=== PATIENT | female | born 1940 | race Caucasian/White ===

== ENCOUNTER → 2016-05-29 | Outpatient (CLI) | payer OTHER ==
--- NOTE | 2016-05-29 14:14 | DX ---
Lumbar Spine, 3 views History: Low back pain, M [age] Comparison: March 09, 2012 Findings: There are 5 lumbarized vertebral bodies . There is a slight scoliosis concave to the left c entered at L1-L2. Alignment on the lateral view is anatomic. There are stable old moderate L1 and mil d superior endplate L3 compression deformities. There is a new .mild-moderate inferior endplate compr ession of L4. There is stable anterior bridging osteophyte formation at T11-T12. There is stable dense atherosclerotic calcification of a normal sized abdominal aorta and proximal il iac arteries. There are chronic right abdominal surgical clips. Impression: 1. New L4 inferior endplate compression since 2011, of uncertain acuity. 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 This patient might also benefit from a DEXA scan. 2. Atherosclerosis.
== END ==
LOC: CIMAGING 10:13
PROVIDERS: ATTEND Internal Medicine
DX: M41.86 Other forms of scoliosis, lumbar region (principal); I70.0 Atherosclerosis of aorta
CPT/HCPCS: 72100-PO

== ENCOUNTER 2016-10-25 22:03 | Inpatient (IN) | payer OTHER ==
[2016-10-25] MEDS ORDERED: ACETAMINOPHEN 500 MG TAB PO ONE (22:38)
[2016-10-25] MEDS ORDERED: KETOROLAC 15 MG/1 ML SDV IVP ONE (22:38)
[2016-10-25] MEDS ORDERED: NS 1,000 ML IV ONE (22:38)
[2016-10-25] MEDS ORDERED: ONDANSETRON 4 MG/2 ML VIAL IVP ONE (22:38)
[2016-10-25] MEDS ORDERED: LIDOCAINE 1% 90 MG in NS 100 ML IV ONE (22:38)
--- NOTE | 2016-10-25 22:41 | EDPHY ---
H & P Stated Complaint: sent by Dr. Vamshi Tenorio kidney stone; hx of stones HPI/ROS: HPI The patient presents with left-sided flank pain which began suddenly at 4:00 p.m. today, it is achy in severe and getting progressively worse. She took a dose of tramadol without any improvement in the pain. She does notice that there is some blood in her urine and she is feeling nauseated. She also reports increased frequency of stooling since the pain occurred without any loose or watery stools. 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 She did have to undergo lithotripsy in approximately 2007 at [facility]. REVIEW OF SYSTEMS Constitutional: No fever, no chills. Eyes: No discharge. ENT: No sore throat. Cardiovascular: No chest pain, no palpitations. Respiratory: No cough, no shortness of breath. Gastrointestinal: No abdominal pain, no vomiting. Genitourinary: No hematuria. Musculoskeletal: Left flank pain Skin: No rashes. Neurological: No headache. PMHx: History of kidney stones, type 2 diabetes Soc Hx: Lives at home PHYSICAL General Appearance: Alert, no distress Eyes: Pupils equal and round no pallor or injection ENT, Mouth: Mucous membranes dry Respiratory: There are no retractions, lungs are clear to auscultation Cardiovascular: Regular rate and rhythm Gastrointestinal: Abdomen is soft with mild tenderness in the left lower quadrant, left-sided CVA tenderness is present Neurological: A&O, moves all extremities Skin: Warm and dry, no rashes Musculoskeletal: Neck is supple non tender Extremities: symmetrical, full range of motion Psychiatric: Patient is oriented X 3, there is no agitation Source: Patient Exam Limitations: No limitations - Personal History Current Tetanus/Diphtheria Vaccine: Yes - Medical/Surgical History Hx Asthma: No Hx Chronic Respiratory Disease: No Hx Diabetes: Yes Hx Cardiac Disease: No Hx Renal Disease: No Hx Cirrhosis: No Hx Alcoholism: No Hx HIV/AIDS: No Hx Splenectomy or Spleen Trauma: No Other PMH: PSHx: lithotripsy, appy, caitlin, hernia, vein ligation. PMHx: kidney stones, diabetes II, cystocele - Social History Smoking Status: Former smoker Constitutional: Initial Vital Signs Temperature (C) 36.6 C 10/25/16 22:08 Heart Rate 98 10/25/16 22:08 Respiratory Rate 16 10/25/16 22:08 Blood Pressure 124/70 H 10/25/16 22:08 O2 Sat (%) 96 10/25/16 22:08 O2 Delivery Mode Room Air Allergies/Adverse Reactions: Sulfa (Sulfonamide Antibiotics) Allergy (Verified 10/25/16 22:06) Home Medications: Medication Instructions Recorded Amlodipine Besylate 10/25/16 Aspirin 81mg (*) 10/25/16 Benazepril HCl 10/25/16 Metformin 1000 mg 10/25/16 Ranitidine HCl 10/25/16 SIMVASTATIN 10/25/16 traMADol 10/25/16 Medical Decision Making - Diagnostics Imaging Results: Imaging Impressions Abdomen/Pelvis CT 10/25/16 22:38 Impression: 1. A 5 mm calculus in the posterior left side of the bladder either representing recently passed left ureterolithiasis or a calculus lodged in the left ureterovesical junction with mild to moderate left hydronephrosis. 2. No right nephrolithiasis or hydronephrosis. 3. Multiple old compression fractures, worse at L1, likely osteoporotic. Consider follow-up DEXA bone scan when the patient's medical condition permits. Attention: This CT examination is specifically designed to evaluate patients who are clinically suspected of having acute obstructive uropathy. This examination does not use radiographic contrast, and as such, provides only a limited evaluation of the abdomen, pelvis and retroperitoneum. If there is further clinical suspicion for pathological conditions other than obstructive uropathy, a complete CT evaluation of the abdomen and pelvis utilizing intravenous, oral, and rectal contrast should be considered Findings and recommendations discussed with Emergency Department physician, Mariela Chowdhury MD at 23:03 hour, 10/25/2016. Final report concurs with initial preliminary interpretation.. Differential Diagnosis: This is a 76-year-old female with history of left-sided kidney stones who presents from home with several hours of severe left-sided flank pain associated with hematuria and nausea. Differential diagnosis includes renal colic, pyelonephritis, less likely AAA. In the emergency room, the patient was given IV fluid, Toradol, lidocaine, Zofran with improvement in her symptoms. Labs were performed and did reveal leukocytosis of 18,000, urine did demonstrate hematuria with signs of infection , nitrites were present. CT scan showed 5 mm stone in UVJ on the left with mild -to-moderate hydronephrosis. Given her history of diabetes with signs of concomitant pyelonephritis with her kidney stone, I feel she should be admitted to the hospital for observation. She is very well-appearing currently and I doubt that she has severe obstruction or infection. There are no signs of sepsis. I have discussed the case with Dr. Rosalinda Kumar of the hospitalist service and we plan to admit her. I have ordered her a bed in the hospital and she is comfortable with plan for admission. - Data Points Laboratory Results: Laboratory Results 10/25/16 22:40 10/25/16 22:40 10/25/16 10/25/16 10/25/16 22:40 22:40 22:30 WBC 18.42 10^3/uL H 10^3/uL (3.80-9.50) RBC 4.56 10^6/uL 10^6/uL (4.18-5.33) Hgb 13.9 g/dL g/dL (12.6-16.3) Hct 42.8 % % (38.0-47.0) MCV 93.9 fL fL (81.5-99.8) MCH 30.5 pg pg (27.9-34.1) MCHC 32.5 g/dL g/dL (32.4-36.7) RDW 13.2 % % (11.5-15.2) Plt Count 325 10^3/uL 10^3/uL (150-400) MPV 11.2 fL fL (8.7-11.7) Neut % (Auto) 87.4 % H % (39.3-74.2) Lymph % (Auto) 5.5 % L % (15.0-45.0) [place] % (Auto) 5.8 % % (4.5-13.0) Eos % (Auto) 0.3 % L % (0.6-7.6) Baso % (Auto) 0.6 % % (0.3-1.7) Nucleat RBC Rel Count 0.0 % % (0.0-0.2) Absolute Neuts (auto) 16.10 10^3/uL H 10^3/uL (1.70-6.50) Absolute Lymphs (auto) 1.01 10^3/uL 10^3/uL (1.00-3.00) Absolute Monos (auto) 1.07 10^3/uL H 10^3/uL (0.30-0.80) Absolute Eos (auto) 0.05 10^3/uL 10^3/uL (0.03-0.40) Absolute Basos (auto) 0.11 10^3/uL H 10^3/uL (0.02-0.10) Absolute Nucleated RBC 0.00 10^3/uL 10^3/uL (0-0.01) Immature Gran % 0.4 % % (0.0-1.1) Immature Gran # 0.08 10^3/uL 10^3/uL (0.00-0.10) Sodium 136 mEq/L mEq/L (134-144) Potassium 4.5 mEq/L mEq/L (3.5-5.2) Chloride 102 mEq/L mEq/L (97-110) Carbon Dioxide 20 mEq/l L mEq/l (22-31) Anion Gap 14 mEq/L mEq/L (8-16) BUN 17 mg/dL mg/dL (7-23) Creatinine 0.6 mg/dL mg/dL (0.6-1.0) Estimated GFR > 60 Glucose 133 mg/dL H mg/dL (70-100) Calcium 9.2 mg/dL mg/dL (8.5-10.4) Urine Color YELLOW Urine Appearance HAZY Urine pH 6.0 (5.0-7.5) Ur Specific [place] 1.015 (1.002-1.030) Urine Protein NEGATIVE (NEGATIVE) Urine Ketones 1+ H (NEGATIVE) Urine Blood 2+ H (NEGATIVE) Urine Nitrate POSITIVE H (NEGATIVE) Urine Bilirubin NEGATIVE (NEGATIVE) Urine Urobilinogen NEGATIVE EU EU (0.2-1.0) Ur Leukocyte Esterase 1+ H (NEGATIVE) Urine RBC 50-182 /hpf H /hpf (0-3) Urine WBC 15-25 /hpf H /hpf (0-3) Ur Epithelial Cells TRACE /lpf /lpf (NONE-1+) Urine Mucus TRACE /lpf /lpf (NONE-1+) Urine Glucose NEGATIVE (NEGATIVE) Medications Given: Discontinued Medications Acetaminophen (Tylenol) 1,000 mg PO EDNOW ONE Stop: 10/25/16 22:39 Last Admin: 10/25/16 23:01 Dose: 1,000 mg Sodium Chloride (Ns) 1,000 mls @ 0 mls/hr IV ONCE ONE; Wide Open PRN Reason: Protocol Stop: 10/25/16 22:39 Last Admin: 10/25/16 23:02 Dose: 1,000 mls Lidocaine HCl 90 mg/ Sodium (Chloride) 109 mls @ 600 mls/hr IV EDNOW ONE Stop: 10/25/16 22:48 Last Admin: 10/25/16 23:02 Dose: 109 mls Ceftriaxone Sodium/Dextrose (Rocephin 1 Gm (Premix)) 50 mls @ 100 mls/hr IV EDNOW ONE PRN Reason: Protocol Stop: 10/26/16 00:21 Last Admin: 10/25/16 23:59 Dose: 50 mls Sodium Chloride (Ns) 500 mls @ 0 mls/hr IV ONCE ONE PRN Reason: Wide Open Stop: 10/26/16 00:41 Last Admin: 10/26/16 00:35 Dose: 500 mls Ketorolac Tromethamine (Toradol) 15 mg IVP EDNOW ONE Stop: 10/25/16 22:39 Last Admin: 10/25/16 23:01 Dose: 15 mg Ondansetron HCl (Zofran) 4 mg IVP EDNOW ONE Stop: 10/25/16 22:39 Last Admin: 10/25/16 23:02 Dose: 4 mg Tamsulosin HCl (Flomax) 0.4 mg PO DAILY BENITA Stop: 04/24/17 00:01 Last Admin: 10/26/16 00:18 Dose: 0.4 mg Departure - Departure Disposition: [facility] Clinical Impression: Ureterolithiasis, Pyelonephritis Leukocytosis Qualifiers: Leukocytosis type: unspecified Qualified Code(s): D72.829 - Elevated white blood cell count, unspecified Diabetes mellitus Qualifiers: Diabetes mellitus type: type 2 Diabetes mellitus complication status: without complication Diabetes mellitus terminal carman insulin use: unspecified terminal carman insulin use status Qualified Code(s): E11.9 - Type 2 diabetes mellitus without complications Condition: Fair
[2016-10-25 22:43] LABS: COLOR YELLOW; LEUKOCYTE ESTERASE,URINE 1+ (NEGATIVE); NITRITE,URINE POSITIVE (NEGATIVE)
[2016-10-25 22:46] LABS: MUCUS TRACE /lpf (NONE-1+); RBC,URINE 50-182 /hpf (0-3); WBC,URINE 15-25 /hpf (0-3)
[2016-10-25 22:52] LABS: % IMMATURE GRANULYOCYTES 0.4 % (0.0-1.1); ABSOLUTE IMMATURE GRANULOCYTES 0.08 10^3/uL (0.00-0.10); ADD DIFF? NO; ADD MORPH? NO; ADD SCAN? NO; ATYPICAL LYMPHOCYTE FLAG 0 (0-99); FRAGMENT RBC FLAG 0 (0-99); HEMATOCRIT 42.8 % (38.0-47.0); HEMOGLOBIN 13.9 g/dL (12.6-16.3); LEFT SHIFT FLG 0 (0-99); LIPEMIA HEMOLYSIS FLAG 80 (0-99); MEAN CELL HEMOGLOBIN 30.5 pg (27.9-34.1); MEAN CELL HEMOGLOBIN CONCENTR. 32.5 g/dL (32.4-36.7); MEAN CELL VOLUME 93.9 fL (81.5-99.8); MEAN PLATELET VOLUME 11.2 fL (8.7-11.7); PLATELET CLUMPS FLAG 0 (0-99); PLATELET COUNT 325 10^3/uL (150-400); RED BLOOD CELL COUNT 4.56 10^6/uL (4.18-5.33); RED CELL DISTRIBUTION WIDTH 13.2 % (11.5-15.2)
[2016-10-25 23:19] LABS: ANION GAP 14 mEq/L (8-16); CALCIUM 9.2 mg/dL (8.5-10.4); CARBON DIOXIDE 20 mEq/l (22-31); CHLORIDE 102 mEq/L (97-110); CREATININE 0.6 mg/dL (0.6-1.0); GLOMERULAR FILTRATION RATE > 60; GLUCOSE 133 mg/dL (70-100); POTASSIUM 4.5 mEq/L (3.5-5.2); SODIUM 136 mEq/L (134-144)
[2016-10-25] MEDS ORDERED: ONDANSETRON 4 MG/2 ML VIAL IVP PRN (23:57)
[2016-10-25] MEDS ORDERED: ONDANSETRON DISINTEGRATING 4 MG TAB PO PRN (23:57)
[2016-10-25] MEDS ORDERED: ACETAMINOPHEN 325 MG TAB PO PRN (23:57)
[2016-10-26] MEDS ORDERED: TAMSULOSIN HCL 0.4 MG CAP PO SCH (00:02)
[2016-10-26] MEDS ORDERED: D50W 25 GM/50 ML SYR IVP PRN (00:03)
--- NOTE | 2016-10-26 00:12 | PDGENHP ---
History and Physical - Chief Complaint left flank pain, chills - History of Present Illness 76 yo female with h/o previous nephrolithiasis in 2007 requiring lithotripsy presents to ED with sudden onset left flank pain. She developed flank pain while at [employer] this afternoon. This was followed by chills. She denies known fevers, but has felt warm. No N/V. She reports several BM's, but denies diarrhea. She endorses suprapubic discomfort, but denies dysuria, frequency or urgency. She states she was "very sick" when she had kidney stones in the past. No CP or SOB. In the ED, CT scan showed 5 mm stone in bladder with moderate left sided hydro and leukocytosis. She has received 1 L NS and 1 g IV Ceftriaxone. She is admitted for further management. History Information - Allergies/Home Medication List Allergies/Adverse Reactions: Sulfa (Sulfonamide Antibiotics) Allergy (Verified 10/25/16 22:06) Home Medications: Amlodipine Besylate 10/25/16 [Last Taken Unknown] Aspirin 81mg (*) 10/25/16 [Last Taken Unknown] Benazepril HCl 10/25/16 [Last Taken Unknown] Metformin 1000 mg 10/25/16 [Last Taken Unknown] Ranitidine HCl 10/25/16 [Last Taken Unknown] SIMVASTATIN 10/25/16 [Last Taken Unknown] traMADol 10/25/16 [Last Taken Unknown] I have personally reviewed and updated: family history, medical history, social history, surgical history - Past Medical History diabetes type 2, hypertension, hyperlipidemia Additional medical history: h/o nephrolithiasis requiring lithotripsy in 2007, ? 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 - Surgical History Reports: appendectomy, cholecystectomy, hernia repair Additional surgical history: lithotripsy 2008, vein ligation - Family History Positive for: non-pertinent - Social History Smoking Status: Former smoker Alcohol Use: None Drug Use: None Additional social history: Lives independently Review of Systems ROS: 10pt was reviewed & negative except for what was stated in HPI & below Physical Exam Temp Pulse Resp BP Pulse Ox 36.6 C 91 18 104/58 L 92 10/25/16 22:08 10/25/16 23:55 10/25/16 23:55 10/25/16 23:55 10/25/16 23:55 Constitutional: no apparent distress Eyes: PERRL Ears, Nose, Mouth, Throat: moist mucous membranes Cardiovascular: tachycardia Respiratory: no respiratory distress, clear to auscultation Gastrointestinal: normoactive bowel sounds, other (soft, nd, +suprapubic TTP, no r/r/g, +left CVA tenderness) Skin: warm Musculoskeletal: full muscle strength Neurologic: AAOx3 Psychiatric: interacting appropriately Lab Data & Imaging Review 10/25/16 22:40 10/25/16 22:40 WBC 18.42 10^3/uL (3.80-9.50) H 10/25/16 22:40 RBC 4.56 10^6/uL (4.18-5.33) 10/25/16 22:40 Hgb 13.9 g/dL (12.6-16.3) 10/25/16 22:40 Hct 42.8 % (38.0-47.0) 10/25/16 22:40 MCV 93.9 fL (81.5-99.8) 10/25/16 22:40 MCH 30.5 pg (27.9-34.1) 10/25/16 22:40 MCHC 32.5 g/dL (32.4-36.7) 10/25/16 22:40 RDW 13.2 % (11.5-15.2) 10/25/16 22:40 Plt Count 325 10^3/uL (150-400) 10/25/16 22:40 MPV 11.2 fL (8.7-11.7) 10/25/16 22:40 Neut % (Auto) 87.4 % (39.3-74.2) H 10/25/16 22:40 Lymph % (Auto) 5.5 % (15.0-45.0) L 10/25/16 22:40 [place] % (Auto) 5.8 % (4.5-13.0) 10/25/16 22:40 Eos % (Auto) 0.3 % (0.6-7.6) L 10/25/16 22:40 Baso % (Auto) 0.6 % (0.3-1.7) 10/25/16 22:40 Nucleat RBC Rel Count 0.0 % (0.0-0.2) 10/25/16 22:40 Absolute Neuts (auto) 16.10 10^3/uL (1.70-6.50) H 10/25/16 22:40 Absolute Lymphs (auto) 1.01 10^3/uL (1.00-3.00) 10/25/16 22:40 Absolute Monos (auto) 1.07 10^3/uL (0.30-0.80) H 10/25/16 22:40 Absolute Eos (auto) 0.05 10^3/uL (0.03-0.40) 10/25/16 22:40 Absolute Basos (auto) 0.11 10^3/uL (0.02-0.10) H 10/25/16 22:40 Absolute Nucleated RBC 0.00 10^3/uL (0-0.01) 10/25/16:40 Immature Gran % 0.4 % (0.0-1.1) 10/25/16 22:40 Immature Gran # 0.08 10^3/uL (0.00-0.10) 10/25/16 22:40 Sodium 136 mEq/L (134-144) 10/25/16 22:40 Potassium 4.5 mEq/L (3.5-5.2) 10/25/16 22:40 Chloride 102 mEq/L (97-110) 10/25/16 22:40 Carbon Dioxide 20 mEq/l (22-31) L 10/25/16 22:40 Anion Gap 14 mEq/L (8-16) 10/25/16 22:40 BUN 17 mg/dL (7-23) 10/25/16 22:40 Creatinine 0.6 mg/dL (0.6-1.0) 10/25/16 22:40 Estimated GFR > 60 10/25/16 22:40 Glucose 133 mg/dL (70-100) H 10/25/16 22:40 Calcium 9.2 mg/dL (8.5-10.4) 10/25/16 22:40 Urine Color YELLOW 10/25/16:30 Urine Appearance HAZY 10/25/16 22:30 Urine pH 6.0 (5.0-7.5) 10/25/16 22:30 Ur Specific [place] 1.015 (1.002-1.030) 10/25/16 22:30 Urine Protein NEGATIVE (NEGATIVE) 10/25/16 22:30 Urine Ketones 1+ (NEGATIVE) H 10/25/16 22:30 Urine Blood 2+ (NEGATIVE) H 10/25/16 22:30 Urine Nitrate POSITIVE (NEGATIVE) H 10/25/16 22:30 Urine Bilirubin NEGATIVE (NEGATIVE) 10/25/16 22:30 Urine Urobilinogen NEGATIVE EU (0.2-1.0) 10/25/16 22:30 Ur Leukocyte Esterase 1+ (NEGATIVE) H 10/25/16 22:30 Urine RBC 50-182 /hpf (0-3) H 10/25/16 22:30 Urine WBC 15-25 /hpf (0-3) H 10/25/16 22:30 Ur Epithelial Cells TRACE /lpf (NONE-1+) 10/25/16:30 Urine Mucus TRACE /lpf (NONE-1+) 10/25/16 22:30 Urine Glucose NEGATIVE (NEGATIVE) 10/25/16 22:30 Visualized and Interpreted imaging results: Yes Interpretation: left hydro with 5 mm stone in posterior bladder Assessment & Plan Assessment: Sepsis secondary to UTI - in setting of obstructing kidney stone. Presents with abnormal UA, leukocytosis and tachycardia. UCx pending. SBP a bit soft, ~ 100 s/p 1 L NS. -repeat NS bolus -send BCx's (atbx already given in ED), lactate, INR, PCT -Cont Ceftriaxone -repeat Toradol, defer flomax as don't want to hasten hypotension -monitor hemodynamics closely Nephrolithiasis with moderate left hydronephrosis - 5 mm stone posterior left side of bladder. Hopefully this will pass. 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 Will make NPO at midnight and consult Urology in am in the event it does not pass as she may need intervention given her associated infection. Will call Urology tonight if she becomes hemodynamically unstable. DM type 2 - bg 130's on arrival. Hold Metformin. SSI for glycemic control. q6h bg's while NPO. Hypertension - holding anti-hypertensives for now as SBP ~100. Resume outpt meds as indicated once med rec completed. Metabolic acidosis - mild, check lactate as above. Full code DVT PPLX - SCD's for now. Defer Lovenox given possible intervention need. Dispo - inpt, will likely require >48 hrs hospitalization for ongoing management of UTI, Sepsis and nephrolithiasis with hydro.
[2016-10-26] MEDS ORDERED: TAMSULOSIN HCL 0.4 MG CAP PO ONE (00:16)
[2016-10-26] MEDS ORDERED: NS 500 ML IV ONE (00:40)
[2016-10-26] MEDS: NS 1,000 ML IV SCH ×3 (01:33→18:46)
[2016-10-26] MEDS: INSULIN LISPRO 100 UNIT/ML SC SCH ×3 (01:34→17:52)
[2016-10-26] MEDS ORDERED: KETOROLAC 30 MG/1 ML SDV IVP PRN (04:00)
[2016-10-26 04:23] LABS: % IMMATURE GRANULYOCYTES 0.6 % (0.0-1.1); ABSOLUTE IMMATURE GRANULOCYTES 0.08 10^3/uL (0.00-0.10); ADD DIFF? NO; ADD MORPH? NO; ADD SCAN? NO; ATYPICAL LYMPHOCYTE FLAG 0 (0-99); FRAGMENT RBC FLAG 0 (0-99); HEMATOCRIT 34.1 % (38.0-47.0); HEMOGLOBIN 11.1 g/dL (12.6-16.3); LEFT SHIFT FLG 0 (0-99); LIPEMIA HEMOLYSIS FLAG 80 (0-99); MEAN CELL HEMOGLOBIN 30.4 pg (27.9-34.1); MEAN CELL HEMOGLOBIN CONCENTR. 32.6 g/dL (32.4-36.7); MEAN CELL VOLUME 93.4 fL (81.5-99.8); MEAN PLATELET VOLUME 11.4 fL (8.7-11.7); PLATELET CLUMPS FLAG 0 (0-99); PLATELET COUNT 219 10^3/uL (150-400); RED BLOOD CELL COUNT 3.65 10^6/uL (4.18-5.33); RED CELL DISTRIBUTION WIDTH 13.2 % (11.5-15.2)
[2016-10-26 04:32] LABS: INR 1.11 (0.83-1.16); PROTIME(PATIENT) 14.2 SEC (12.0-15.0)
[2016-10-26 04:37] LABS: ANION GAP 7 mEq/L (8-16); CARBON DIOXIDE 18 mEq/l (22-31); CHLORIDE 109 mEq/L (97-110); CREATININE 0.5 mg/dL (0.6-1.0); GLOMERULAR FILTRATION RATE > 60; GLUCOSE 99 mg/dL (70-100); SODIUM 134 mEq/L (134-144)
[2016-10-26] MEDS: oxyCODONE IR 5 MG TAB PO PRN ×2 (13:21→20:44)
--- NOTE | 2016-10-26 16:06 | HOSPPROG ---
Hospitalist Progress Note Assessment/Plan: # Acute ureterolithiasis- CT abd (personally reviewed and interpreted) 5mm stone at the ureterovesicular junction- mild hydronephrosis noted Pain improved since ER - consulted Dr. Gimenez from Urology will review images - continue IV fluids - continue IV pain meds # pyelonephritis- white count 18 at presentation - urine culture sent - empiric ceftriaxone started # acute leukocytosis presumed secondary to pyelonephritis- follow with IV antibiotics- oxygen saturations 95% on room air # hypertension- systolic blood pressure in the 90s - hold home BP meds # diabetes- takes metformin at home - hold metformin in case additional imaging required # diet regular # prophylaxis Lovenox # disposition greater than 2 midnights as patient needs IV antibiotics IV fluids and evaluation of ureterolithiasis I have discussed the case with Dr. Gimenez he will review images and make recommendations on the need for inpatient urologic intervention or outpatient follow-up Subjective: Pain improved Objective: Vital Signs Temp Pulse Resp BP Pulse Ox 36.9 C 89 17 95/52 L 94 10/26/16 15:55 10/26/16 15:55 10/26/16 15:55 10/26/16 15:55 10/26/16 15:55 Laboratory Results 10/26/16 04:02 10/26/16 04:02 10/25/16 10/26/16 10/27/16 05:59 05:59 05:59 Intake Total 1500 Output Total 600 300 Balance 900 -300 PT 14.2 SEC (12.0-15.0) 10/26/16 04:02 INR 1.11 (0.83-1.16) 10/26/16 04:02 - Physical Exam Constitutional: appears nourished Eyes: anicteric sclera Ears, Nose, Mouth, Throat: moist mucous membranes Cardiovascular: regular rate and rhythym Respiratory: no respiratory distress, no rales or rhonchi Gastrointestinal: normoactive bowel sounds, No tenderness Genitourinary: no bladder fullness Skin: warm, normal color Musculoskeletal: No asymmetric calves Neurologic: AAOx3 Psychiatric: interacting appropriately Lymph, Heme, Immunologic: no cervical LAD ICD10 Worksheet Patient Problems: Problems Problem Status Onset Diabetes mellitus Acute Leukocytosis Acute Pyelonephritis Acute Ureterolithiasis Acute
--- NOTE | 2016-10-26 20:00 | SOAPPROG ---
SOAP Progress Note Assessment/Plan: Assessment: 1. Left distal ureteral calculus 2. UTI: not symptomatic at this time. Plan: 1. Continue ureteral stone medical mgmt. this evening, including Flomax. Minimal risk of Flomax-induced hypotension due to its tract selectivity. 2. Continue Rocephin IV for now. 3. Tentatively planning on intraoperative ureteroscopy tomorrow afternoon if she does not spontaneously pass the stone in the meantime. If she begins to exhibit any signs of sepsis beforehand then surgery will be postponed and she will need a temporary nephrostomy tube. See dictated consult note (# [id number]). Objective: Vital Signs Temp Pulse Resp BP Pulse Ox 36.9 C 89 17 95/52 L 94 10/26/16 15:55 10/26/16 15:55 10/26/16 15:55 10/26/16 15:55 10/26/16 15:55 Laboratory Results 10/26/16 04:02 10/26/16 04:02 10/25/16 10/26/16 10/27/16 05:59 05:59 05:59 Intake Total 1500 100 Output Total 600 820 Balance 900 -720 PT 14.2 SEC (12.0-15.0) 10/26/16 04:02 INR 1.11 (0.83-1.16) 10/26/16 04:02 ICD10 Worksheet Patient Problems: Problems Problem Status Onset Diabetes mellitus Acute Leukocytosis Acute Pyelonephritis Acute Ureterolithiasis Acute
[2016-10-26] MEDS: PRAVASTATIN SODIUM 20 MG TAB PO SCH (20:44)
[2016-10-26] MEDS: TAMSULOSIN HCL 0.4 MG CAP PO SCH (20:47)
[2016-10-27] MEDS: INSULIN LISPRO 100 UNIT/ML SC SCH ×4 (01:06→18:21)
--- NOTE | 2016-10-27 05:16 | GCON ---
[f rep st] CONSULTATION UROLOGY CONSULTATION DATE OF CONSULTATION: 10/26/2016 PHYSICIAN REQUESTING CONSULTATION: Hospitalist service. REASON FOR CONSULTATION: Left ureteral calculus. HISTORY: This is a 76-year-old woman who recently started experiencing a fairly acute onset of left-sided flank pain for which she eventually presented to the emergency room late in the evening on October 25. She denies any associated fevers, no flu-like symptoms, nausea, or emesis. She also denies any changes in her voiding pattern. She underwent radiographic evaluation in the emergency room and was found to have a ureteral calculus, as well as a possible urinary tract infection. She is admitted for further management thereafter. PAST MEDICAL HISTORY: Notable for recurrent nephrolithiasis (last symptomatic in approximately 2007 requiring hospitalization at [facility]), 5 episodes total; lai-wsaigcc-aufcvorjy diabetes mellitus, gastroesophageal reflux disease , hyperlipidemia, hypertension. PAST SURGICAL HISTORY: Includes extracorporeal shock wave lithotripsy, appendectomy, cholecystectomy, hysterectomy, and vein stripping. ADMISSION MEDICATIONS: Include amlodipine, baby aspirin, benazepril, metformin 1000 mg daily, ranitidine, simvastatin, tramadol. MEDICAL ALLERGIES: Sulfa causes hives. FAMILY HISTORY: Noncontributory. SOCIAL HISTORY: The patient is and lives in the [facility]. She denies current use of tobacco, no alcohol products. REVIEW OF SYSTEMS: Unremarkable, other than mentioned above in the HPI and past medical history. PHYSICAL EXAM: GENERAL: Well-developed, well-nourished white female lying supine in bed, in no acute distress pleasantly. VITAL SIGNS: Blood pressure 195/52, pulse 89, respirations 17, oxygen saturation 94% on room air, temperature 36.9 Celsius. She has been afebrile since present hospital presentation. Height 157 cm, weight 60.7 kg, BMI 24. HEENT: Normocephalic, atraumatic. NECK : Supple. HEART: Regular rate. CHEST: Unlabored respiratory pattern. ABDOMEN: Soft with mild left upper quadrant tenderness to deep palpation. No peritoneal signs. No involuntary guarding is appreciated. BACK: Mild left CVA tenderness to percussion. GENITOURINARY: Bladder is nonpalpable in the lower midline. EXTREMITIES: Warm without cyanosis, clubbing, nor significant edema. NEUROLOGIC: She is alert and oriented. She answers all questions appropriately with normal mood and affect. RADIOGRAPHIC STUDIES: 10/25/[address] scan: Upon my review, notable for [id number] left hydronephrosis and hydroureter down to an approximately 4 x 2 x 5 mm long ureteral vesicle junction calculus. She also has evidence of bilateral peripelvic cysts. No other significant renal calculus disease is appreciated. LABORATORY: On admission, chemistry panel is unremarkable and unchanged results from earlier today. Creatinine 0.5, calcium 8.0. Coagulation parameters are normal. CBC notable for white blood cell count 18,400 on admission which is decreased to 13,600 this morning. Admission urinalysis notable for being nitrite positive with 50-182 red blood cells and 15-25 white blood cells per high-power field. Urine culture is growing gram-negative rods, lactose fermenting gram-negative rods on initial results. Blood cultures are no growth to date. IMPRESSION: 1. Symptomatic left ureterovesical junction calculus. 2. Probable gram-negative mina urinary tract infection: She does not exhibit any evidence of overt urinary tract infection at this point and certainly not sepsis. 3. Bilateral parapelvic simple renal cysts. PLAN: 1. Continue IV ceftriaxone, which has already been started. 2. Continue with medical stone management, including increased IV fluids, parenteral analgesics and antiemetics p.r.n., and initiation of Flomax. I believe it is safe to start Flomax in this case as it is a quite selective alpha -aranza with very low risk of inducing further hypotension. 3. If she is unable to spontaneously pass her calculus overnight, we will proceed with intraoperative ureteroscopy and calculus management early tomorrow afternoon. 4. If she develops fevers or any signs of urinary tract infection before tomorrow's planned surgery, there will be low threshold to postpone her surgery and instead place a temporary left-sided nephrostomy tube for left upper urinary tract decompression. Thank you for this consultation. /[id number]/MODL [id number]
[2016-10-27 05:25] LABS: HEMATOCRIT 33.3 % (38.0-47.0); HEMOGLOBIN 10.6 g/dL (12.6-16.3); MEAN CELL HEMOGLOBIN CONCENTR. 31.8 g/dL (32.4-36.7); MEAN CELL VOLUME 94.3 fL (81.5-99.8); RED BLOOD CELL COUNT 3.53 10^6/uL (4.18-5.33); RED CELL DISTRIBUTION WIDTH 13.4 % (11.5-15.2)
[2016-10-27] MEDS ORDERED: amLODIPine BESYLATE 5 MG TAB PO SCH (09:00)
[2016-10-27] MEDS ORDERED: BENAZEPRIL HCL 10 MG TAB PO SCH (09:00)
[2016-10-27] MEDS: TAMSULOSIN HCL 0.4 MG CAP PO SCH (09:58)
[2016-10-27] MEDS: ASPIRIN 81 MG CHEWABLE TAB PO SCH (09:58)
[2016-10-27 10:28] LABS: ANION GAP 8 mEq/L (8-16); CALCIUM 7.8 mg/dL (8.5-10.4); CARBON DIOXIDE 20 mEq/l (22-31); CHLORIDE 107 mEq/L (97-110); CREATININE 0.5 mg/dL (0.6-1.0); GLOMERULAR FILTRATION RATE > 60; GLUCOSE 92 mg/dL (70-100); POTASSIUM 3.7 mEq/L (3.5-5.2); SODIUM 135 mEq/L (134-144)
--- NOTE | 2016-10-27 12:13 | PDANEPAE ---
ANE History of Present Illness 76 yo F with ureterovesicle calculus here for ureteroscopy w laser ANE Past Medical History - Pulmonary History Hx COPD: Yes Hx Oxygen in Use at Home: No - Endocrine History Hx Diabetes: Yes ANE Review of Systems - Exercise capacity Exercise capacity: >=4 METS ANE Patient History - Allergies Allergies/Adverse Reactions: Sulfa (Sulfonamide Antibiotics) Allergy (Verified 10/25/16 22:06) - Home Medications Home medications: home medication list seen and reviewed Home Medications: Aspirin [Aspirin 81mg (*)] 81 mg PO DAILY 10/25/16 [Last Taken 10/25/16] Benazepril HCl [Lotensin (*)] 10 mg PO DAILY 10/25/16 [Last Taken 10/25/16] Simvastatin [Zocor] 10 mg PO HS 10/25/16 [Last Taken 10/24/16] amLODIPine BESYLATE [Norvasc 5 mg (*)] 5 mg PO DAILY 10/25/16 [Last Taken ] metFORMIN HCL [Glucophage 1000 mg] 1,000 mg PO BIDMEAL 10/25/16 [Last Taken 09:00] - NPO status NPO Since - Liquids (Date): 10/27/16 NPO Since - Liquids (Time): 00:00 NPO Since - Solids (Date): 10/27/16 NPO Since - Solids (Time): 00:00 - Anes Hx Anes Hx: no prior problems - Smoking Hx Smoking Status: Former smoker - Alcohol Use Alcohol Use: None - Family Anes Hx Family Anes Hx: none ANE Labs/Vital Signs - Labs Result Diagrams: 10/27/16 04:49 10/27/16 09:36 - Vital Signs Blood Pressure: 115/59 Heart Rate: 83 Respiratory Rate: 16 O2 Sat (%): 96 Height: 157.48 cm Weight: 60.781 kg ANE Physical Exam - Airway Neck exam: FROM Mallampati Score: Class 2 Mouth exam: dentures - Pulmonary Pulmonary: no respiratory distress, clear to auscultation - Cardiovascular Cardiovascular: regular rate and rhythym, no murmur, rub, or gallop - ASA Status ASA Status: III ANE Anesthesia Plan Anesthesia Plan: general endotracheal anesthesia
[2016-10-27] MEDS ORDERED: IOPAMIDOL (ISOVUE-M 300) 15 ML VIAL ONE (12:18)
[2016-10-27] MEDS ORDERED: LIDOCAINE 2% JELLY 20 ML (UROJECT) ONE (12:18)
[2016-10-27] MEDS ORDERED: PROPOFOL 200 MG/20 ML VIAL ONE (12:21)
[2016-10-27] MEDS ORDERED: fentaNYL 100 MCG/2 ML INJ ONE (12:22)
[2016-10-27] MEDS ORDERED: LIDOCAINE 2% 5 ML SDV ONE (12:27)
[2016-10-27] MEDS ORDERED: LR 1,000 ML IV ONE (12:36)
--- NOTE | 2016-10-27 13:07 | HOSPPROG ---
Hospitalist Progress Note Assessment/Plan: # Acute ureterolithiasis- CT abd (personally reviewed and interpreted) 5mm stone at the ureterovesicular junction- mild hydronephrosis noted Dr. Castro co value waited overnight planning for intraoperative ureteroscopy today - continue Flomax - continue IV fluids - continue IV pain meds - patient NPO for OR # pyelonephritis- white count 18 at presentation-> 8 - urine culture with E coli - continue ceftriaxone # acute leukocytosis presumed secondary to pyelonephritis- follow with IV antibiotics- oxygen saturations 96% on 1L # hypertension- systolic blood pressure 104-120 - continue hold home BP meds # diabetes- takes metformin at home - hold metformin in case additional imaging required # diet regular # prophylaxis hold Lovenox for OR # disposition greater than 2 midnights as patient needs IV antibiotics IV fluids and evaluation of ureterolithiasis I have discussed the case with RN- we will keep patient NPO for operating room today Subjective: pain has not recurred Objective: Vital Signs Temp Pulse Resp BP Pulse Ox 37.2 C 83 16 115/59 L 96 10/27/16 09:30 10/27/16 12:19 10/27/16 12:19 10/27/16 12:19 10/27/16 12:19 Laboratory Results 10/27/16 04:49 10/27/16 09:36 10/26/16 10/27/16 10/28/16 05:59 05:59 05:59 Intake Total 1500 2515 Output Total 600 1820 900 Balance 900 695 -900 PT 14.2 SEC (12.0-15.0) 10/26/16 04:02 INR 1.11 (0.83-1.16) 10/26/16 04:02 - Physical Exam Constitutional: no apparent distress Eyes: anicteric sclera Ears, Nose, Mouth, Throat: moist mucous membranes Cardiovascular: regular rate and rhythym Respiratory: no respiratory distress, no rales or rhonchi Gastrointestinal: normoactive bowel sounds Genitourinary: no bladder fullness Skin: warm, normal color Musculoskeletal: No asymmetric calves Neurologic: AAOx3 Psychiatric: interacting appropriately, not anxious Lymph, Heme, Immunologic: no cervical LAD ICD10 Worksheet Patient Problems: Problems Problem Status Onset Diabetes mellitus Acute Leukocytosis Acute Pyelonephritis Acute Ureterolithiasis Acute
[2016-10-27] MEDS ORDERED: SUGAMMADEX SODIUM 200 MG/2 ML VIAL IVP ONE (14:00)
[2016-10-27] MEDS ORDERED: ONDANSETRON 4 MG/2 ML VIAL IVP PRN (14:10)
[2016-10-27] MEDS ORDERED: OXYCODONE/APAP 5/325 TAB PO PRN (14:10)
[2016-10-27] MEDS ORDERED: NALOXONE HCL 0.4 MG/ML INJ IVP PRN (14:10)
[2016-10-27] MEDS ORDERED: ACETAMINOPHEN 500 MG TAB PO PRN (14:10)
--- NOTE | 2016-10-27 14:11 | SOAPPROG ---
LEONELA Progress Note Assessment/Plan: Assessment: 1. Left distal ureteral calculus: based on admission CT. No stone has been strained by nursing staff. 2. UTI: remains symptomatic. Pros and cons of proceeding with diagnostic ureteroscopy and all questions were answered. Plan: Proceed with planned intraoperative ureteroscopy this afternoon. Subjective: States she has been pain-free since yesterday, if not since soon after admission. Objective: Vital Signs Temp Pulse Resp BP Pulse Ox 37.2 C 83 16 115/59 L 96 10/27/16 09:30 10/27/16 12:19 10/27/16 12:19 10/27/16 12:19 10/27/16 12:19 Laboratory Results 10/27/16 04:49 10/27/16 09:36 10/26/16 10/27/16 10/28/16 05:59 05:59 05:59 Intake Total 1500 2515 Output Total 600 1820 900 Balance 900 695 -900 PT 14.2 SEC (12.0-15.0) 10/26/16 04:02 INR 1.11 (0.83-1.16) 10/26/16 04:02 Physical Exam - Physical Exam General Appearance: WD/WN, alert, no apparent distress ICD10 Worksheet Patient Problems: Problems Problem Status Onset Diabetes mellitus Acute Leukocytosis Acute Pyelonephritis Acute Ureterolithiasis Acute
--- NOTE | 2016-10-27 14:13 | POSTOPPROG ---
Post Op Note Date of Operation: 10/27/16 Surgeon: Nusrat Webster (# [id number]) Anesthesia: GET(General Endotracheal) Pre-op Diagnosis: Distal left ureteral calculus Post-op Diagnosis: Spontaneously-passed distal left ureteral caculus Procedure: Cysto, Left RGP, ureteroscopy, stent placement Findings: See op note Inf/Abcess present in the surg proc area at time of surgery?: No EBL: Minimal Complications: None Text Box - Additional Text Additional Text: She may be discharged whenever deemed appropriate by the hospitalist service and FU in my office in 1-2 weeks for ureteral stent removal.
--- NOTE | 2016-10-27 14:22 | POSTANESTH ---
Post Anesthetic Evaluation Cardiovascular Status: Normal, Stable, Similar to Pre-Op Cond Respiratory Status: Normal, Stable, Similar to Pre-op Cond. Level of Consciousness/Mental Status: Can Participate in Eval, Alert and Oriented Pain Control: Adequate, Prn Tx Ordered Nausea/Vomiting Control: Adequate, Prn Tx Ordered Complications Possibly Related to Anesthesia: None Noted
[2016-10-27] MEDS ORDERED: PHENAZOPYRIDINE HCL 200 MG TAB ONE (15:10)
[2016-10-27] MEDS: PHENAZOPYRIDINE HCL 200 MG TAB PO SCH ×3 (15:11→21:04)
--- NOTE | 2016-10-27 15:26 | GOP ---
[f rep st] OPERATIVE REPORT DATE OF OPERATION: 10/27/2016 SURGEON: Nusrat Webster MD ANESTHESIA: General endotracheal. PREOPERATIVE DIAGNOSIS: Symptomatic distal left ureteral calculus. POSTOPERATIVE DIAGNOSIS: Spontaneously passed distal left ureteral calculus. PROCEDURE PERFORMED: 1. Cystourethroscopy, left retrograde pyelography. 2. Left ureteroscopy. 3. Left ureteral stent placement (4.7-Cuban by 22 cm). FINDINGS: Spontaneously passed left distal ureteral calculus. SPECIMENS: None. ESTIMATED BLOOD LOSS: Minimal. INDICATIONS: This woman was admitted the night before last with intractable symptoms related to a distal left ureteral calculus. Since admission, she has had minimal pain, but no stone has been retrieved by the nursing staff through straining. Therefore, we decided to proceed with diagnostic ureteroscopy at this time. The indications for the procedures, as well as potential risks and complications , were discussed with the patient preoperatively. She appeared to understand, her questions were answered, and she wished to proceed. Written informed surgical consent was thereafter obtained. DESCRIPTION OF PROCEDURE: The patient was brought to the operating room and administered general endotracheal anesthesia. She was carefully placed in the dorsal lithotomy position on the cystoscopic table. The genital area was sterilely prepped with Betadine scrub and paint, and draped in the usual sterile fashion. Cystoscopy was performed with the 30 degree lens through a 22-Cuban sheath. Urethra was unremarkable. Bladder revealed evidence of a cystocele. Otherwise , there were no tumors, foreign bodies, or areas of abnormal erythema identified. There was a fair amount of edema surrounding the left ureteral orifice and the left trigone, consistent with either a remaining in situ calculus or a recently passed calculus. A cone-tipped catheter was used to perform retrograde pyelography on the left side. This revealed no obvious filling defects, hydronephrosis, or hydroureter. 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 No other filling defects were appreciated. I decided to proceed with ureteroscopy to ensure the calculus was not present. After passing a 0.032 inch hydrophilic guidewire up the left ureter and into the lower pole moiety collecting system as seen fluoroscopically, a 4 cm balloon was used to dilate the distal ureter by maintaining a pressure of 16 atmospheres for about 4 minutes. The balloon dilator and cystoscope were then removed while keeping the guidewire in place. Semi-rigid ureteroscopy was performed alongside the guidewire. The ureteroscope was advanced from the ureterovesical junction all the way to the lower pole moiety renal collecting system and no calculi were seen. There was some edema in the distal left ureter , but otherwise the ureter was unremarkable. The ureteroscope was removed and the cystoscope was back loaded over the guidewire. A 4.7-Cuban by 22 cm hydrophilic ureteral stent was advanced over the guidewire until it was properly positioned as seen fluoroscopically in the kidney and cystoscopically in the bladder. The bladder was then drained of all return, which was relatively clear. The instruments were removed and 20 mL of 2% lidocaine injected transurethrally for postoperative analgesic purposes. The patient was then awakened, extubated , transferred to her bed and then taken to the recovery room. She tolerated the procedure well overall. COMPLICATIONS: None. DISPOSITION: She was transferred to recovery in stable condition. She will be taken back to her room afterwards and then may be discharged whenever deemed appropriate by the hospitalist service. She will need to return to my office in 1-2 weeks for ureteral stent removal. /[id number]/MODL MTDD
[2016-10-27] MEDS: NS 1,000 ML IV SCH (17:53)
[2016-10-27] MEDS: oxyCODONE IR 5 MG TAB PO PRN ×2 (18:27→21:04)
[2016-10-27] MEDS: PRAVASTATIN SODIUM 20 MG TAB PO SCH (21:04)
[2016-10-28] MEDS: INSULIN LISPRO 100 UNIT/ML SC SCH ×2 (00:22→05:24)
[2016-10-28] MEDS: oxyCODONE IR 5 MG TAB PO PRN ×3 (01:54→10:34)
[2016-10-28] MEDS: NS 1,000 ML IV SCH ×2 (01:54→08:28)
[2016-10-28 08:21] VITALS: BP 109/53; PULSE 103; RESP 18; TEMP 98.7; O2SAT 90
[2016-10-28] MEDS: TAMSULOSIN HCL 0.4 MG CAP PO SCH (08:28)
[2016-10-28] MEDS: PHENAZOPYRIDINE HCL 200 MG TAB PO SCH (08:28)
[2016-10-28] MEDS: ASPIRIN 81 MG CHEWABLE TAB PO SCH (08:28)
--- NOTE | 2016-10-28 09:56 | PDIAF ---
- Diagnosis Diagnosis: ureterolithiasis Code Status: Full Code - Medication Management Discharge Medications: Medications to Continue on Transfer Aspirin [Aspirin 81mg (*)] 81 mg PO DAILY 10/25/16 [Last Taken 10/25/16] Benazepril HCl [Lotensin (*)] 10 mg PO DAILY 10/25/16 [Last Taken 10/25/16] Simvastatin [Zocor] 10 mg PO HS 10/25/16 [Last Taken 10/24/16] amLODIPine BESYLATE [Norvasc 5 mg (*)] 5 mg PO DAILY 10/25/16 [Last Taken ] metFORMIN HCL [Glucophage 1000 mg] 1,000 mg PO BIDMEAL 10/25/16 [Last Taken 09:00] levOFLOXACIN [Levofloxacin] 750 mg PO DAILY #3 tablet 10/28/16 [Last Taken Unknown] oxyCODONE IR [Oxycodone Ir (*)] 5 - 10 mg PO Q4HRS PRN #30 tab 10/28/16 [Last Taken Unknown] Discharge Medications: Refer to the Discharge Home Medication list for PRN reason. - Orders Services needed: Home Care, Registered Nurse Home Care Face to Face: I certify that this patient was under my care and that I had the required [id number] encounter meeting the encounter requirements on the discharge day. My findings support the fact that the patient is homebound as defined in CMS Chapter 7 Medicare Benefits Manual 30.1.1, The condition of the patient is such that there exists a normal inability to leave home and consequently, leaving home would require a considerable and taxing effort. Diet Recommendation: no restrictions on diet Diet Texture: Regular Texture Diet - Follow Up Care Current Providers and Referrals: Patrice Bonds MD [Primary Care Provider] - As per Instructions Nusrat Webster MD [Medical Doctor] - Eddie Pantoja MD [Medical Doctor] - As per Instructions
--- NOTE | 2016-10-29 05:18 | GDS ---
[f rep st] DISCHARGE SUMMARY DISCHARGE DIAGNOSES: 1. Acute pyelonephritis. 2. Distal left ureteral calculus. 3. Hydronephrosis from ureteral lithiasis. 4. Hypertension. 5. Diabetes. HISTORY OF PRESENT ILLNESS: A 76-year-old female with a history of previous kidney stones who prese nts with flank pain, found to have a kidney stone. For details of patient's initial presentation, telly vail see the history and physical dated 10/26/2016. CONSULTATIVE SERVICES: Urology. PROCEDURES: On 10/27/2016, patient underwent cystourethroscopy with left retrograde pyelography, le ft ureteral stent placement. HOSPITAL COURSE: By issue: 1. Left ureteral stent. Patient was admitted, evaluated by Urology, hydrated started on Flomax, an d IV pain medications, was taken for left ureteral stent placement, without complication. She is be ing discharged with p.r.n. oral pain medications and followup appointment with Dr. Webster for postpr ocedural followup. 2. Pyelonephritis. Patient presented with acute leukocytosis of 18 with symptoms, identified E col i pansensitive on urine culture. Initially treated with ceftriaxone, transitioned to oral levofloxa quinten to complete a 7-day course. MEDICATIONS: At the time of disposition, please reference the med rec printed on 10/28/2016. FOLLOWUP APPOINTMENTS: Include with her primary care provider, Dr. Bonds, as well as with Dr. Webster for postureteral stent followup and evaluation. PENDING STUDIES: At the time of this dictation include blood cultures, which are preliminary, no gr owth to date from 10/26/2016. I spent greater than 30 minutes in the planning and coordination of this discharge. /[id number]/MODL
== END 2016-10-28 11:44 | disposition home health service (06) | DRG 694 ==
LOC: OBSVTOIN 23:57 → F1N 10-26 01:09
PROVIDERS: ADMIT Hospitalist; ATTEND Hospitalist
DX: N13.2 Hydronephrosis with renal and ureteral calculous obstruction (principal); I10 Essential (primary) hypertension; E11.9 Type 2 diabetes mellitus without complications; E78.5 Hyperlipidemia, unspecified
CPT/HCPCS: 96374; 97161-GP; C1726; C1758; C1769; C2625; G8978-GP-CI; G8979-GP-CI; G8980-GP-CI; J0696; J1885; J2405; J2704; J3010; Q9967

== ENCOUNTER → 2017-04-19 | Outpatient (CLI) | payer OTHER | LOC: CIMAGING 15:28 | PROVIDERS: ATTEND Internal Medicine | DX: Z13.820 Encounter for screening for osteoporosis (principal); M85.89 Other specified disorders of bone density and structure, multiple sites; Z82.62 Family history of osteoporosis | CPT/HCPCS: 71020-PO ==

== ENCOUNTER 2017-10-03 22:10 | Inpatient (IN) | payer OTHER ==
--- NOTE | 2017-10-03 22:23 | EDPHY ---
H & P Time Seen by Provider: 10/03/17 22:23 HPI/ROS: CC: Left hip pain HPI: This is a 77-year-old female who lives at home independently. She was out in the front yd around 7:00 p.m. When she took a tumble due to the irregularity the yd. She was unable to get up 1st secondary due to pain in the left inguinal region and left hip. She was able to crawl on all fours to get into the house by way of supporting herself on the railing of the 2 steps that gets into the house. Once there she was able to call her son who brought her here. She denies any neck or back pain. There is no blow to the chest nor is any rib discomfort. Furthermore she is having no difficulty the right hip nor was there any injury to the head. She has full recall for the event. She is not on blood thinners When I interviewed her she was willing to take some Tylenol for her pain ROS: Constitutional - feeling well before the fall Head no injury or hematoma. Eyes - no diplopia, blurred vision. ENT - no earache, no fluid from ear. No fluid from nose. No facial injury Neck: no pain or decreased ROM Thorax did not injury to chest or ribs or spine, no shortness of breath Abdominal - denies any abdomen, or back injury. No nausea. Musculoskeletal - no joint or muscle pain. Integument - no lacerations Neurological - no headache, numbness, tingling, or paresthesias. No focal motor weakness. No amnesia or LOC. No fluid from ear or nose 10 point ROS otherwise negative Smoking Status: Former smoker Physical Exam: Constitutional: Well-nourished, well-developed, no acute distress. [No odor of alcohol]. Elderly female in with her son Head: No cephalohematoma. No battles sign or racoon eyes. Neck: Nontender without step off, with full active range of motion without pain Spine: Nontender to the thoracic and lumbar sacral spine Eyes: Pupils equal and reactive. ENT: Ears are without hemotympanum. Mouth exam, atraumatic. Chest: Ribs are nontender. No signs of splinting respirations. Back: Nontender thoracic and lumbar sacral spine Abdomen: Nontender. No organomegaly. No abrasions Musculoskeletal: Moves the arms and right extremities without difficulty. No joint swelling. No ecchymosis. No deformities. With respect to the left hip she holds it in flexion. I am unable to extend it completely without causing her pain. She is able to externally rotated appropriately for someone her age. There is no shortening that I can tell although again, she is unable to extend completely. There is some tenderness over the ASIS Skin: No observed abrasions or lacerations. Skin is warm and dry. Normal motor and sensation Neuro: Alert and oriented with a GCS of 15. No acute distress. No headache. Psych: Normal mood and affect. Constitutional: Initial Vital Signs Temperature (C) 36.8 C 10/03/17 22:26 Heart Rate 110 H 10/03/17 22:26 Respiratory Rate 18 10/03/17 22:26 Blood Pressure 129/89 H 10/03/17 22:26 O2 Sat (%) 90 L 10/03/17 22:26 O2 Delivery Mode Room Air Allergies/Adverse Reactions: Sulfa (Sulfonamide Antibiotics) Allergy (Verified 10/03/17 22:26) Home Medications: Medication Instructions Recorded Aspirin [Aspirin 81mg (*)] 81 mg PO DAILY 10/25/16 Benazepril HCl [Lotensin (*)] 10 mg PO DAILY 10/25/16 amLODIPine BESYLATE [Norvasc 5 mg 5 mg PO DAILY 10/25/16 (*)] metFORMIN HCL [Glucophage 1000 mg] 1,000 mg PO BIDMEAL 10/25/16 Medical Decision Making ED Course/Re-evaluation: On initial evaluation she acquiesced to taking Tylenol for her discomfort. Care transferred to the oncoming ER physician at 2300 hr Differential Diagnosis: The differential diagnosis includes but is not limited to: Fracture, Sprain, Strain, Dislocation, Nerve injury, Contusion - Data Points Medications Given: Discontinued Medications Acetaminophen (Tylenol) 650 mg PO EDNOW ONE Stop: 10/03/17 22:32 Last Admin: 10/03/17 22:38 Dose: 650 mg
[2017-10-03] MEDS ORDERED: ACETAMINOPHEN 325 MG TAB PO ONE (22:31)
--- NOTE | 2017-10-03 23:48 | CPEKG ---
Heart Rate: 100 RR Interval: 600 P-R Interval: 180 QRSD Interval: 104 QT Interval: 348 QTC Interval: 449 P [place]: 64 QRS [place]: -37 T Wave [place]: 71 EKG Severity - OTHERWISE NORMAL ECG - EKG Impression: SINUS TACHYCARDIA EKG Impression: LEFT AXIS DEVIATION Electronically Signed By: Jolene Smiley 03-Oct-2017 23:59:50
[2017-10-04] MEDS ORDERED: HYDROmorphone HCL 0.5 MG/0.5 ML SYR IVP PRN (01:21)
[2017-10-04] MEDS ORDERED: ONDANSETRON DISINTEGRATING 4 MG TAB PO PRN (01:21)
[2017-10-04] MEDS ORDERED: HYDROmorphone HCL 0.5 MG/0.5 ML SYR IV ONE (01:30)
[2017-10-04] MEDS: oxyCODONE IR 5 MG TAB PO PRN ×4 (01:38→19:20)
[2017-10-04] MEDS: ACETAMINOPHEN 500 MG TAB PO SCH ×4 (01:58→21:44)
--- NOTE | 2017-10-04 02:20 | GHP ---
[f rep st] HISTORY AND PHYSICAL DATE OF ADMISSION: 10/04/2017 The patient is a 77-year-old female with history of nephrolithiasis and diabetes that has resolved wi th weight loss. She had a mechanical fall today, she was walking in her yard. She tripped [facility]. She landed on her left side. She had a difficult time walking but sort of crawled back into her house. Sounds like she was able to take a couple steps with a great deal of pain on her left hi p. She had presented to Urgent Care where a hip film showed possible or likely subcapital hip fractu re. The images are reviewed, interpreted by me. The patient denies that she is able to be functionally independent and does not have any exertional s ymptoms. She will walk up 2 flights of stairs. She might have to stop for shortness of breath. She has no known cardiac disease. Does not have heart failure symptoms such as PND, orthopnea, or lower extremity edema. Does not have exertional anginal symptoms. She says her diabetes, which she had for about 20 years resolved after a 70 pounds weight loss. She was hospitalized at [facility] last year where she lost 70 pounds with some infection. She has not regai raine the weight. She offered minimal details further, it is not clear if she had positive occult bloo d cultures. She said nobody really knew where the infection came from. REVIEW OF SYSTEMS: Complete 10-point review of systems conducted. Negative except as noted in the H PI. PAST MEDICAL HISTORY: Nephrolithiasis and diabetes. Hypertension. ALLERGIES: Sulfa. HOME MEDICATIONS: Include aspirin, amlodipine, benazepril, metformin, although she does not take met formin anymore. SOCIAL HISTORY: No alcohol, no tobacco. Originally from [facility]. FAMILY HISTORY: Is reviewed and unremarkable. PHYSICAL EXAMINATION: Temp 37, blood pressure 130/69, pulse 100, breathing 18 times a minute, 95% on 2 L. GENERAL: No acute distress, uncomfortable. SCLERAE: Anicteric. OROPHARYNX: Clear. MUCOUS MEMBRANES: Are moist. NECK: Supple without lymphadenopathy or JVD. LUNGS: Clear to auscultation bilaterally. HEART: Is S1, S2. ABDOMEN: Soft, nontender, nondistended. LOWER EXTREMITIES: With out edema. Calves are nontender. SKIN: Without rash. She does have pain over her left hip. It is not shortened or externally rotated. LABS: Pending at this time. EKG interpreted by me shows sinus rhythm at 100 with left axis deviation. There is a nonspecific int erventricular conduction delay. There is no ST or T-wave changes. Hip x-ray interpreted by me shows possible subcapital fracture. I have discussed the case with Dr. Igor Beltran, as well as Dr. Jolene Smiley. ASSESSMENT/PLAN: A 77-year-old female with likely hip fracture secondary to mechanical fall. 1. Hip fracture. This appears to be a hip fracture by my read and certainly this scenario is sugges tive of it, but on further characterization, I have ordered a CT at the direction of Dr. Igor davila, orthopedist on-call. 2. Preoperative cardiac evaluation. The patient has a history of diabetes and probably is able to a chieve 4 METS. She may proceed to the operating room at moderate risk without further workup or inte rvention. 3. Hypertension. We will continue her medications, they have been reconciled. 4. Pain. Scheduled Tylenol, p.r.n. narcotics. 5. Prophylaxis. Low molecular heparin indicated. She is high risk. I will start this on October 05 at 9 a.m. given the likelihood of surgery tomorrow. DISPOSITION: Inpatient status. /[id number]/MODL
[2017-10-04 02:43] LABS: PLATELET COUNT 218 10^3/uL (150-400)
[2017-10-04 02:51] LABS: INR 1.03 (0.83-1.16); PROTIME(PATIENT) 13.7 SEC (12.0-15.0)
[2017-10-04] MEDS: NS 1,000 ML IV SCH (03:08)
[2017-10-04] MEDS ORDERED: LR 1,000 ML IV ONE (09:16)
[2017-10-04] MEDS ORDERED: BUPIVACAINE 0.5% 30 ML SDV ONE ×2 (09:23→23:10)
--- NOTE | 2017-10-04 09:49 | PDANEPAE ---
ANE History of Present Illness L hip TFN ANE Past Medical History - Cardiovascular History Hx Hypertension: Yes Hx Arrhythmias: No Hx Chest Pain: No Hx Coronary Artery / Peripheral Vascular Disease: No - Pulmonary History Hx COPD: Yes Hx Oxygen in Use at Home: No Hx Sleep Apnea: No Sleep Apnea Screening Result - Last Documented: Negative - Endocrine History Hx Diabetes: Yes ANE Review of Systems Review of Systems: - Exercise capacity Exercise capacity: >=4 METS ANE Patient History - Allergies Allergies/Adverse Reactions: Sulfa (Sulfonamide Antibiotics) Allergy (Verified 10/04/17 08:15) Rash - Home Medications Home medications: home medication list seen and reviewed Home Medications: Aspirin [Aspirin 81mg (*)] 81 mg PO DAILY 10/25/16 [Last Taken 10/03/17] Benazepril HCl [Lotensin (*)] 10 mg PO DAILY 10/25/16 [Last Taken 10/03/17] amLODIPine BESYLATE [Norvasc 5 mg (*)] 5 mg PO DAILY 10/25/16 [Last Taken ] metFORMIN HCL [Glucophage 500 mg (*)] 500 mg PO BIDMEAL 10/04/17 [Last Taken 07/18 18:00] - NPO status NPO Since - Liquids (Date): 10/03/17 NPO Since - Liquids (Time): 17:00 NPO Since - Solids (Date): 10/03/17 NPO Since - Solids (Time): 17:00 - Anes Hx Anes Hx: no prior problems - Smoking Hx Smoking Status: Former smoker - Alcohol Use Alcohol Use: None - Family Anes Hx Family Anes Hx: none ANE Labs/Vital Signs - Labs Result Diagrams: 10/03/17 02:15 10/03/17 02:15 - Vital Signs Blood Pressure: 130/64 Heart Rate: 88 Respiratory Rate: 18 O2 Sat (%): 94 Height: 157.48 cm Weight: 63.503 kg ANE Physical Exam - Airway Neck exam: FROM Mallampati Score: Class 2 Mouth exam: dentures - Pulmonary Pulmonary: no respiratory distress, clear to auscultation - Cardiovascular Cardiovascular: regular rate and rhythym, no murmur, rub, or gallop - ASA Status ASA Status: III ANE Anesthesia Plan Anesthesia Plan: GA w LMA
[2017-10-04] MEDS ORDERED: fentaNYL 100 MCG/2 ML INJ ONE ×3 (10:03→12:47)
[2017-10-04] MEDS ORDERED: PROPOFOL 200 MG/20 ML VIAL ONE ×2 (10:03→23:01)
[2017-10-04] MEDS ORDERED: ceFAZolin 1 GM VIAL ONE ×2 (11:11)
--- NOTE | 2017-10-04 11:25 | ASMTCMCOM ---
CM Note CM Note Notes: Pt to OR today for hip fx after fall at home. Pt resides independently and has a son involved. Therapy evaluations pending. CM to follow for d/c planning. Date Signed: 10/04/2017 11:25 AM Electronically Signed By:JEANINE Moore
[2017-10-04] MEDS ORDERED: NALOXONE HCL 0.4 MG/ML INJ IVP PRN ×2 (11:30→12:57)
[2017-10-04] MEDS ORDERED: oxyCODONE IR 5 MG TAB PO PRN (11:30)
[2017-10-04] MEDS ORDERED: ALBUTEROL 3 ML DEYVIAL IH PRN (11:30)
[2017-10-04] MEDS ORDERED: HYDROCODONE/APAP 5/325 TAB PO PRN (11:30)
[2017-10-04] MEDS ORDERED: ACETAMINOPHEN 500 MG TAB PO PRN (11:30)
--- NOTE | 2017-10-04 11:32 | POSTANESTH ---
Post Anesthetic Evaluation Cardiovascular Status: Normal, Stable, Similar to Pre-Op Cond Respiratory Status: Normal, Stable, Similar to Pre-op Cond. Level of Consciousness/Mental Status: Moderately Sleepy Pain Control: Adequate, Prn Tx Ordered Nausea/Vomiting Control: Adequate, Prn Tx Ordered Complications Possibly Related to Anesthesia: None Noted
--- NOTE | 2017-10-04 11:39 | POSTOPPROG ---
Post Op Note Date of Operation: 10/04/17 Surgeon: Igor Beltran Studio Assistant: Luis Alberto Villagomez PA-C Anesthesiologist: Dr Gao Anesthesia: GET(General Endotracheal) Pre-op Diagnosis: left sub capital femoral neck fracture Post-op Diagnosis: left sub capital femoral neck fracture Indication: pain and fracture Procedure: left femoral neck percutaneous pinning Inf/Abcess present in the surg proc area at time of surgery?: No EBL: Minimal Complications: none
[2017-10-04] MEDS ORDERED: ONDANSETRON 4 MG/2 ML VIAL ONE ×3 (11:46→23:00)
[2017-10-04] MEDS: ONDANSETRON 4 MG/2 ML VIAL IVP PRN (11:47)
--- NOTE | 2017-10-04 11:47 | GOP ---
[f rep st] OPERATIVE REPORT DATE OF OPERATION: 10/04/2017 SURGEON: Igor Beltran MD GLASS [employer] BLANKET MACHINE FEEDER: Luis Alberto Villagomez PA-C. Medically required for positioning of the leg during percutaneo us pinning of the left hip. PREOPERATIVE DIAGNOSIS: Left hip valgus impacted femoral neck fracture. POSTOPERATIVE DIAGNOSIS: Left hip valgus impacted femoral neck fracture. PROCEDURE PERFORMED: Percutaneous screws. FINDINGS: ESTIMATED BLOOD LOSS: Minimal. INDICATIONS: Senia is a 77-year-old female who had a mechanical fall. Lives independently in the [facility] area. She has 2 sons in the area. 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 Independent ambulator. Community ambulator. Does not walk with a walker. Had a slip and fall. ER evaluation shows a valgus impacted femoral neck fracture. CT scan read out as no neck frac ture, but reviewing it myself appears to be a valgus impacted femoral neck fracture with preservation of the medial calcar. Preoperative examination reveals inability to heel slide secondary to groin pain and thigh pain. She had a positive log roll. She was not short or externally rotated. Because of her symptoms and subt le CT findings, the plan was to go ahead and percutaneous screw this left subcapital valgus impacted femoral neck fracture. DESCRIPTION OF PROCEDURE: The patient identified in the preoperative holding area. All questions we re answered. She understands the risks, benefits, and alternatives. Patient brought into the operating room. General anesthesia on the rmanson. Transferred over to the traction table. Well leg was placed in 90 degrees abduction and 90 degrees of knee flexion. The lef t hip was placed in neutral alignment with a well padded traction perineal post. The left hip was pr epped and draped in usual sterile fashion. Shower curtain draping. A 4 cm incision was made just di stal to the greater trochanter. Sharp dissection of the vastus lateralis. We placed the inferior-po sterior guidewire and used a coupling guide to place 3 screws. The tip to apex distance was less corine n 5 mm. We were satisfied on the AP half lateral and lateral views. We copiously washed out the wou nd with 250 cc of warm normal saline. Two 0 PDS for deep subcutaneous closure. Superficial subcutan eous closure 3-0 Monocryl and kathy. 10 cc of Marcaine was used, 0.5% plain. [place] were applied . A waterproof dressing was applied. IMPLANTS USED: 6.5 mm cannulated screws x3. COMPLICATIONS: None. TOTAL SURGICAL TIME: Half-hour. DISPOSITION: Extubated, awake to the PACU in stable condition. /[id number]/MODL
[2017-10-04] MEDS: fentaNYL 100 MCG/2 ML INJ IVP PRN ×3 (11:58→12:49)
--- NOTE | 2017-10-04 12:02 | GCON ---
[f rep st] CONSULTATION ORTHOPEDIC EMERGENCY ROOM CONSULT CHIEF COMPLAINT: Left hip pain. DIAGNOSIS: A nondisplaced subcapital valgus impacted femoral neck fracture. HISTORY OF PRESENT ILLNESS: The patient is a 77-year-old female who lives independently. 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 She is an independent walker. She had a mecha nical trip and fall last night. Evaluation shows painful hip flexion with x-rays that show a valgus impacted femoral neck fracture. CT scan was formally called out as no femoral neck fracture, but is currently getting an over-read. Please see details of ER admitting H and P. EXAMINATION: Orthopedic examination reveals a well-appearing female. Coherent. Bilateral upper ext remities without pain. She has pannus on her abdomen, but a soft abdomen. Stable pelvis. Right low er extremity has ability to heel slide. Negative log roll. Pain-free range of motion. Left hip is painful with heel sliding up to 30 degrees. Positive log roll. Her left leg is not overly short or externally rotated. X-rays and CT scan reviewed. Not quite sure that the CT read is accurate. She does have clinical signs of hip pain with an x-ray that shows a valgus impacted femoral neck fracture with increased radiopacities at the femoral neck a s compared to the contralateral side, and the CT scan shows some anterosuperior cortical breach. The medial calcar does look fairly intact. IMPRESSION AND RECOMMENDATION: Because of her pain and clinical symptoms as correlative to the x-ray findings, we went ahead and discussed the risks, benefits, expectations, and alternatives of surgery and non-surgery, and she would like to proceed with hip pinning. Risks, benefits, expectations, and alternatives were discussed. Consent was obtained. A half hour at the bedside. /[id number]/MODL
--- NOTE | 2017-10-04 12:21 | HOSPPROG ---
Hospitalist Progress Note Assessment/Plan: 77y with hip pain. #Hip fx -appreciate Dr Beltran -to OR for pinning #HTN -stable #Pain -support #Dispo -unclear -PT/OT Subjective: No pain currently. Objective: Vital Signs Temp Pulse Resp BP Pulse Ox 36.8 C 88 18 130/64 H 98 10/04/17 11:28 10/04/17 09:49 10/04/17 09:49 10/04/17 09:49 10/04/17 11:28 10/03/17 10/04/17 10/05/17 05:59 05:59 05:59 Intake Total 450 Output Total 200 Balance 250 PT 13.7 SEC (12.0-15.0) 10/03/17 02:15 INR 1.03 (0.83-1.16) 10/03/17 02:15 - Physical Exam Constitutional: no apparent distress, appears nourished Eyes: PERRL, anicteric sclera Ears, Nose, Mouth, Throat: moist mucous membranes, hearing normal Cardiovascular: No JVD, No edema Respiratory: no respiratory distress, reduced air movement Gastrointestinal: No tenderness, No ascites Skin: warm, normal color Musculoskeletal: muscular tenderness, generalized weakness Psychiatric: not anxious ICD10 Worksheet Patient Problems: Problems Problem Status Onset Ureterolithiasis Acute Pyelonephritis Acute Leukocytosis Acute Diabetes mellitus Acute Fracture of neck of femur Acute
[2017-10-04] MEDS ORDERED: ONDANSETRON 4 MG/2 ML VIAL IVP ONE (12:45)
[2017-10-04] MEDS ORDERED: ONDANSETRON 4 MG/2 ML VIAL IVP PRN (12:57)
[2017-10-04] MEDS: CYCLOBENZAPRINE 10 MG TAB PO PRN (19:20)
[2017-10-04] MEDS: ERTAPENEM 1 GM in NS 100 ML IV SCH (21:36)
--- NOTE | 2017-10-04 21:51 | HOSPPROG ---
Hospitalist Progress Note Assessment/Plan: 40 minutes of bedside critical care time spent with this patient, specifically addressing the following (possibly perforated bowel w/ high risk worsening morbidity/mortality): - called by RN for sepsis trigger w/ tachycardia + fever, both of which are acutely new tonight, SBP stable, not in any particular pain - reviewed today's notes by Dr. Beltran and Armond Victoria, [facility] , L hip fxr, POD#0 repair, no prior hx of CHF/abd issues - evaluated patient, has mild tenderness immediately below the rib cage bilat, active bowel sounds, no guarding or peritoneal signs, regular rhythm tachycardia , insp crackles bilat bases up to mid posterior segments bilaterally, no erythema around L hip surg site, AAOx2 (person and place, not time), appears lethargic but arousable to verbal stimuli, follows single commands - patient w/ pain in the diaphragm w/ deep inspiration, currently on 3LPM NC - CXR (d/w Dr. Ozuna) demonstrating free air under the R diaphragm w/ air filled/distended loops of bowel under the L diaphragm, also interstitial CHF pattern - EKG ordered to establish this is sinus tach - CBC, vLact, ddimer, CMP, trop, blood Cx ordered - start Invanz now given possibility of bowel perf and peritonitis - cont low rate IVF, hold on bolusing given possible CHF and SBP is currently status - called gen surg (Dr. Mata) and requested consultation for possible bowel perf - made NPO (evening shift patient has only had small amount of smoothie and water) in case she requires OR tonight - patient has hx of unusual infxn at [facility] causing significant weight loss, unclear if that is possibly related to bowel source which could cause perf, ordered outside records from [facility] (ID, micro, DC summary) to clarify - unclear if patient's mild disorientation and somnolence are 2/2 oxy/muscle- relax received at 7:30 p.m. vs. infxn/sepsis - obtain labs, surgical needs, consider transfer to SDU - will communicate patient's acute needs to photographic process attendant for reassessment Objective: Vital Signs Temp Pulse Resp BP Pulse Ox 37.6 C 107 H 18 141/73 H 93 10/04/17 20:45 10/04/17 20:00 10/04/17 20:00 10/04/17 20:00 10/04/17 20:00 10/03/17 10/04/17 10/05/17 05:59 05:59 05:59 Intake Total 450 600 Output Total 200 170 Balance 250 430 PT 13.7 SEC (12.0-15.0) 10/03/17 02:15 INR 1.03 (0.83-1.16) 10/03/17 02:15 ICD10 Worksheet Patient Problems: Problems Problem Status Onset Ureterolithiasis Acute Pyelonephritis Acute Leukocytosis Acute Diabetes mellitus Acute Fracture of neck of femur Acute
[2017-10-04 21:53] LABS: PLATELET COUNT 203 10^3/uL (150-400)
[2017-10-04] MEDS ORDERED: IOPAMIDOL (ISOVUE-300) 100 ML BTL ONE (22:23)
--- NOTE | 2017-10-04 22:40 | SOAPPROG ---
SOAP Progress Note Assessment/Plan: Assessment: 77 FEMALE SOMEWHAT SEDATED BUT WITH FEVER, ABD PAIN AND SMALL AMOUNT OF FREE AIR ABD SOFT BUT TENDER AND POORLY LOCALISED Plan:STAT CT AND SURGERY 10/04/17 22:39 Objective: Vital Signs Temp Pulse Resp BP Pulse Ox 37.6 C 98 16 121/66 H 95 10/04/17 22:01 10/04/17 22:01 10/04/17 22:01 10/04/17 22:01 10/04/17 22:01 Laboratory Results 10/04/17 21:27 10/04/17 21:27 10/03/17 10/04/17 10/05/17 05:59 05:59 05:59 Intake Total 450 600 Output Total 200 170 Balance 250 430 PT 13.7 SEC (12.0-15.0) 10/03/17 02:15 INR 1.03 (0.83-1.16) 10/03/17 02:15 ICD10 Worksheet Patient Problems: Problems Problem Status Onset Fracture of neck of femur Acute Diabetes mellitus Acute Leukocytosis Acute Pyelonephritis Acute Ureterolithiasis Acute
--- NOTE | 2017-10-04 22:55 | PDANEPAE ---
ANE History of Present Illness Diagnostic laparoscopy, possible laparotomy ANE Past Medical History - Cardiovascular History Hx Hypertension: Yes Hx Arrhythmias: No Hx Chest Pain: No Hx Coronary Artery / Peripheral Vascular Disease: No - Pulmonary History Hx COPD: Yes Hx Oxygen in Use at Home: No Hx Sleep Apnea: No Sleep Apnea Screening Result - Last Documented: Negative - Endocrine History Hx Diabetes: Yes - Renal History Renal History Comment: stones ANE Review of Systems Review of systems is: negative Review of Systems: - Exercise capacity Exercise capacity: unable to assess ANE Patient History - Allergies Allergies/Adverse Reactions: Sulfa (Sulfonamide Antibiotics) Allergy (Verified 10/04/17 08:15) Rash - Home Medications Home medications: home medication list seen and reviewed Home Medications: Aspirin [Aspirin 81mg (*)] 81 mg PO DAILY 10/25/16 [Last Taken 10/03/17] Benazepril HCl [Lotensin (*)] 10 mg PO DAILY 10/25/16 [Last Taken 10/03/17] amLODIPine BESYLATE [Norvasc 5 mg (*)] 5 mg PO DAILY 10/25/16 [Last Taken ] metFORMIN HCL [Glucophage 500 mg (*)] 500 mg PO BIDMEAL 10/04/17 [Last Taken 07/18 18:00] - NPO status NPO Since - Liquids (Date): 10/05/17 NPO Since - Liquids (Time): 19:00 NPO Since - Solids (Date): 10/05/17 NPO Since - Solids (Time): 19:00 - Anes Hx Anes Hx: no prior problems - Smoking Hx Smoking Status: Former smoker - Alcohol Use Alcohol Use: None - Family Anes Hx Family Anes Hx: none ANE Labs/Vital Signs - Labs Result Diagrams: 10/04/17 21:27 10/04/17 21:27 - Vital Signs Vital Signs: reviewed preoperatively; see RN documention for details Blood Pressure: 121/66 Heart Rate: 98 Respiratory Rate: 16 O2 Sat (%): 95 Height: 157.48 cm Weight: 63.503 kg ANE Physical Exam - Airway Neck exam: FROM Mallampati Score: Class 2 Mouth exam: dentures - Pulmonary Pulmonary: no respiratory distress - Cardiovascular Cardiovascular: regular rate and rhythym - ASA Status ASA Status: II, E ANE Anesthesia Plan Anesthesia Plan: general endotracheal anesthesia (RSI)
[2017-10-04] MEDS ORDERED: LIDOCAINE 2% 100 MG/5 ML SYR ONE (23:00)
[2017-10-04] MEDS ORDERED: ROCURONIUM 50 MG/5 ML VIAL ONE (23:00)
[2017-10-04] MEDS ORDERED: SUGAMMADEX SODIUM 200 MG/2 ML VIAL IVP ONE (23:00)
[2017-10-04] MEDS ORDERED: DEXAMETHASONE 4 MG/ML VIAL ONE (23:00)
[2017-10-04] MEDS ORDERED: fentaNYL 250 MCG/5 ML INJ ONE (23:01)
[2017-10-04] MEDS ORDERED: ceFAZolin 1 GM/5 ML SYR ONE (23:10)
[2017-10-04] MEDS ORDERED: HEPARIN 1000 UNIT/1 ML MDV ONE (23:10)
--- NOTE | 2017-10-04 23:34 | CPEKG ---
Heart Rate: 97 RR Interval: 619 P-R Interval: 148 QRSD Interval: 104 QT Interval: 360 QTC Interval: 458 P Cranston: 61 QRS Cranston: -50 T Wave Cranston: 68 EKG Severity - ABNORMAL ECG - EKG Impression: SINUS RHYTHM EKG Impression: LAD, CONSIDER LEFT ANTERIOR FASCICULAR BLOCK Electronically Signed By: Gloria Rain 05-Oct-2017 20:22:49
--- NOTE | 2017-10-05 00:10 | POSTANESTH ---
Post Anesthetic Evaluation Cardiovascular Status: Normal, Stable, Similar to Pre-Op Cond Respiratory Status: Normal, Stable, Similar to Pre-op Cond. Level of Consciousness/Mental Status: Can Participate in Eval, Mildly Sleepy, Arousable Pain Control: Adequate, Prn Tx Ordered Nausea/Vomiting Control: Adequate, Prn Tx Ordered Complications Possibly Related to Anesthesia: None Noted
[2017-10-05] MEDS ORDERED: PROMETHAZINE HCL 25 MG/ML INJ IVP PRN (01:20)
[2017-10-05] MEDS ORDERED: LABETALOL HCL 5 MG/ML 20 ML MDV IVP PRN (01:20)
[2017-10-05] MEDS ORDERED: HYDROmorphONE/DILAUDID 1 MG/ML INJ IVP PRN (01:20)
[2017-10-05] MEDS ORDERED: MEPERIDINE 25 MG/0.5 ML AMP IVP PRN (01:20)
[2017-10-05] MEDS ORDERED: ONDANSETRON 4 MG/2 ML VIAL IVP PRN (01:20)
[2017-10-05] MEDS ORDERED: HYDROCODONE/APAP 5/325 TAB PO PRN (01:20)
[2017-10-05] MEDS ORDERED: DEXAMETHASONE 4 MG/ML VIAL IVP PRN (01:20)
[2017-10-05] MEDS ORDERED: oxyCODONE IR 5 MG TAB PO PRN (01:20)
[2017-10-05] MEDS ORDERED: fentaNYL 100 MCG/2 ML INJ IVP PRN (01:20)
[2017-10-05] MEDS ORDERED: NALOXONE HCL 0.4 MG/ML INJ IVP PRN (01:20)
[2017-10-05] MEDS ORDERED: HYDROmorphone HCL/NS 0.5 MG/ML SYR IVP PRN (02:00)
--- NOTE | 2017-10-05 02:16 | POSTOPPROG ---
Post Op Note Date of Operation: 10/05/17 Surgeon: Butch Mata Anesthesiologist: kimberly Anesthesia: GET(General Endotracheal) Pre-op Diagnosis: perforated viscus Post-op Diagnosis: pneumotosis coli Indication: free air, fever, pain Procedure: diagnostic laparoscopy Findings: no perf, contamination, peritonitis or bleeding or bile stain Inf/Abcess present in the surg proc area at time of surgery?: No Depth: Organ Space EBL: Minimal Complications: 0 Specimen(s): 0
[2017-10-05] MEDS: ONDANSETRON 4 MG/2 ML VIAL IVP PRN (02:43)
[2017-10-05] MEDS: NS 1,000 ML IV SCH ×2 (02:43→15:09)
[2017-10-05] MEDS: ACETAMINOPHEN 500 MG TAB PO SCH ×3 (05:25→22:36)
[2017-10-05 06:00] LABS: PLATELET COUNT 183 10^3/uL (150-400)
[2017-10-05] MEDS ORDERED: amLODIPine BESYLATE 5 MG TAB PO SCH (09:00)
[2017-10-05] MEDS ORDERED: BENAZEPRIL HCL 10 MG TAB PO SCH (09:00)
[2017-10-05] MEDS ORDERED: ENOXAPARIN 40 MG/0.4 ML SYR SC SCH (09:00)
--- NOTE | 2017-10-05 09:32 | HOSPPROG ---
Hospitalist Progress Note Assessment/Plan: 77-year-old admitted with a impacted femoral neck fracture status post pinning by Dr. Beltran presents with increased abdominal pain and free air on imaging. She underwent laparoscopic surgery yesterday where there is no obvious abnormalities found. She is here recovering from her to surgeries. # hip fracture, s/p pinning, PT/OT per recommendations from ortho * dc planning # elevated LFTs, mild. Likely from stress of acute illness. CT imaging of liver is normal and pt is s/p caitlin. * fu LFTs in am # Free air on KUB, s/p exp lap which was unremarkable * positive bowel sounds, * monitor and feed per surgery recs # DM, follow BS # HTN: slightly low, will follow. Subjective: pt new to me and chart reviewed. no pain, just got pain meds 2 hours prior to visit. Objective: Vital Signs Temp Pulse Resp BP Pulse Ox 37.9 C 86 15 101/44 L 97 10/05/17 07:22 10/05/17 07:22 10/05/17 07:22 10/05/17 07:22 10/05/17 07:22 Laboratory Results 10/05/17 05:15 10/05/17 05:15 10/04/17 10/05/17 10/06/17 05:59 05:59 05:59 Intake Total 450 1771 Output Total 200 1190 Balance 250 581 PT 13.7 SEC (12.0-15.0) 10/03/17 02:15 INR 1.03 (0.83-1.16) 10/03/17 02:15 - Physical Exam Constitutional: no apparent distress Eyes: PERRL, EOMI Ears, Nose, Mouth, Throat: moist mucous membranes Cardiovascular: regular rate and rhythym Respiratory: no respiratory distress, clear to auscultation Gastrointestinal: No normoactive bowel sounds (present but decreased) Genitourinary: no bladder fullness Skin: warm Musculoskeletal: abnormal gait Neurologic: AAOx3 Psychiatric: interacting appropriately ICD10 Worksheet Patient Problems: Problems Problem Status Onset Ureterolithiasis Acute Pyelonephritis Acute Leukocytosis Acute Diabetes mellitus Acute Fracture of neck of femur Acute
--- NOTE | 2017-10-05 10:00 | PDMN ---
Medical Necessity Medical necessity: Patient meets inpatient criteria per physician note and [facility] [place] Surgery or Procedure ( percutaneous pinning of L subcapital hip fracture s/p mechanical fall; postop developed acute s/s sepsis: fever, tachycardia, pneumoperitoneum on CXR/abd CT; taken to OR for emergent exlap which was negative for perforated viscus or any other abnormality; anticipated LOS > 2 midnights for IV antibiotics, slow advance of diet, PT/OT.)
[2017-10-05] MEDS: ERTAPENEM 1 GM in NS 100 ML IV SCH (10:32)
[2017-10-05] MEDS: ASPIRIN 81 MG CHEWABLE TAB PO SCH (10:36)
--- NOTE | 2017-10-05 12:58 | GCON ---
[f rep st] CONSULTATION [employer] CONSULTATION Patient examined postoperatively after receiving a hip pinning after a fall, as well as an explorator y laparotomy for free air on KUB. The patient is a very pleasant 77-year-old white female with a pas t medical history, including diabetes and hypertension. She was admitted initially after a fall caus ing a hip fracture. She underwent the hip pinning. Subsequently, she developed some abdominal pain. CT scan of the abdomen revealed free air under the diaphragm. She was taken to the operating room by Dr. Shadi Mata for an exploratory laparotomy, but no source was found. In discussion with the patient, overall, she feels quite well. She states her pain is reasonably tolerated. Her hip pain i s mostly nonexistent. She denies any shortness of breath, cough or productive sputum. There is no f ever or night sweats. No nausea, vomiting, or diarrhea. Again, she is currently sitting up in a ximena ir and resting comfortably. REVIEW OF SYSTEMS: Ten-point review of systems was performed and is negative, except for what is lis jermaine in the HPI. PAST MEDICAL HISTORY: Significant for hypertension, diabetes, and kidney stones. ALLERGIES: Sulfa. SOCIAL HISTORY: No history of tobacco use. No history of alcohol use. MEDICATIONS: At home include aspirin, amlodipine, benazepril, metformin. FAMILY HISTORY: Noncontributory. PHYSICAL EXAM: VITAL SIGNS: Blood pressure 105/44, pulse 85, respirations 20, temperature 36.9, oxy gen saturation 98% on 4 L. GENERAL: She is a thin, but well-developed, elderly white female who is resting comfortably, in no acute distress. HEENT: Eyes: PERRL, EOMI. Throat shows no erythema or t onsillar hypertrophy. NECK: Supple. No cervical adenopathy. HEART: Regular rate and rhythm, with a 2/6 systolic murmur, left sternal border, without radiation. LUNGS: Diminished breath sounds, bu t no wheeze. ABDOMEN: Soft, appropriately tender. Bowel sounds are diminished. EXTREMITIES: No c lubbing, cyanosis, or edema. LABORATORY DATA: White count is 10.5, hemoglobin 13, hematocrit 42. Platelet count is 183. Sodium 139, potassium 4.5, chloride 104. CO2 is 24, BUN 8, creatinine 0.5. Glucose is 143. IMPRESSION: 1. Status post fall. 2. Hip fracture, status post pinning. 3. Free air under the diaphragm, status post exploratory laparotomy. 4. Hypertension. 5. Diabetes. 6. History of kidney stones. RECOMMENDATIONS: 1. Continue adequate pain control. 2. DVT and PE prophylaxis. 3. Stress ulcer prophylaxis. 4. Aggressive blood sugar control. 5. PT and OT. /[id number]/MODL
--- NOTE | 2017-10-05 15:40 | SOAPPROG ---
SOAP Progress Note Assessment/Plan: Assessment: 77 FEMALE SOMEWHAT SEDATED BUT WITH FEVER, ABD PAIN AND SMALL AMOUNT OF FREE AIR ABD SOFT BUT TENDER AND POORLY LOCALISED Plan:STAT CT AND SURGERY 10/04/17 22:39 AFEBRILE. +BOWEL SOUNDS. VSS. WOUNDS OK. 10/05/17 15:37 Objective: Vital Signs Temp Pulse Resp BP Pulse Ox 36.9 C 85 20 105/44 L 98 10/05/17 12:27 10/05/17 12:27 10/05/17 12:27 10/05/17 12:27 10/05/17 12:27 Laboratory Results 10/05/17 05:15 10/05/17 05:15 10/04/17 10/05/17 10/06/17 05:59 05:59 05:59 Intake Total 450 1771 Output Total 200 1190 650 Balance 250 581 -650 PT 13.7 SEC (12.0-15.0) 10/03/17 02:15 INR 1.03 (0.83-1.16) 10/03/17 02:15 ICD10 Worksheet Patient Problems: Problems Problem Status Onset Fracture of neck of femur Acute Diabetes mellitus Acute Leukocytosis Acute Pyelonephritis Acute Ureterolithiasis Acute
--- NOTE | 2017-10-05 21:42 | SOAPPROG ---
SOAP Progress Note Assessment/Plan: Assessment: 77 yo female pod#1 s/p left femoral neck fracture s/p percutaneous pinning by dr. quispe, doing well, no issues -proph: lovenox 40 sub q daily while in hospital, asa 325 daily once discharge, incentive spirometry, scd's, jermaine rosenes -ot/pt: weight bearing as tolerated left lower extremity -in patient consult placed to consider placement at [facility] in patient rehab to facility/expedite recovery from the left femoral neck fracture as well as the abdominal surgery. -pain per primary -ortho will continue to follow Plan: 10/05/17 21:42 Subjective: alissa reports no significant issues over night from the orthopedic side of things , she reprots the abdominal procedure is the only issue that shes not thrillsed with, but otherwise she reports she is doing well. pain is well controlled, she reports 1 episode of fever over night, hasn't passed any gas, but is also NPO as per Dr. blackburn due to her abdominal surgery last night. she denies any falls or injuries, reports working with PT/OT and wlaking with a wlaker w/o any issues. denies any numbness/tingling Objective: LLE:dressings c/d/i, no signs of drainage, discharg, no surrounding erythema. appropriately tender to palpatoin, no hip rom assessed, grossly nvid w/ brisk cap refill, full ankle/digit rom, pt/dp 2+ Vital Signs Temp Pulse Resp BP Pulse Ox 36.3 C 96 22 H 119/52 L 94 10/05/17 19:51 10/05/17 19:51 10/05/17 19:51 10/05/17 19:51 10/05/17 19:51 Laboratory Results 10/05/17 05:15 10/05/17 05:15 10/04/17 10/05/17 10/06/17 05:59 05:59 05:59 Intake Total 450 1771 1822 Output Total 200 1190 1300 Balance 250 581 522 PT 13.7 SEC (12.0-15.0) 10/03/17 02:15 INR 1.03 (0.83-1.16) 10/03/17 02:15 - Time Spent With Patient Time Spent With Patient: 20 - Pending Discharge Pending Discharge Within 24 Hours: No Pending Discharge Within 48 Hours: No ICD10 Worksheet Patient Problems: Problems Problem Status Onset Fracture of neck of femur Acute Diabetes mellitus Acute Leukocytosis Acute Pyelonephritis Acute Ureterolithiasis Acute
[2017-10-06 05:48] LABS: PLATELET COUNT 165 10^3/uL (150-400)
[2017-10-06] MEDS: ERTAPENEM 1 GM in NS 100 ML IV SCH (08:11)
[2017-10-06] MEDS: ASPIRIN 81 MG CHEWABLE TAB PO SCH (08:11)
[2017-10-06] MEDS: ACETAMINOPHEN 500 MG TAB PO SCH ×3 (08:11→21:30)
--- NOTE | 2017-10-06 08:48 | SOAPPROG ---
SOAP Progress Note Assessment/Plan: Assessment/Plan: 77 Y F s/p fall c femoral neck fracture s/p surgical repair, free air on CT s/p ex-laparoscopy without significant findings aside from pneumotosis coli. +DM. Doing well. Abdominal wounds intact. Tolerating diet. Passing gas. Pain controlled. Defer d/c to orthopedic and medicine teams. Will add d/c info into d/c plan. S: see above. O: alert nad ctab rrr abd soft, inc cdi, excellent BS 10/06/17 08:47 Objective: Vital Signs Temp Pulse Resp BP Pulse Ox 36.8 C 87 17 123/50 H 95 10/06/17 07:44 10/06/17 07:44 10/06/17 07:44 10/06/17 07:44 10/06/17 07:44 Laboratory Results 10/06/17 05:30 10/06/17 05:30 10/05/17 10/06/17 10/07/17 05:59 05:59 05:59 Intake Total 1771 2952 Output Total 1190 2000 250 Balance 581 952 -250 PT 13.7 SEC (12.0-15.0) 10/03/17 02:15 INR 1.03 (0.83-1.16) 10/03/17 02:15 ICD10 Worksheet Patient Problems: Problems Problem Status Onset Fracture of neck of femur Acute Diabetes mellitus Acute Leukocytosis Acute Pyelonephritis Acute Ureterolithiasis Acute
--- NOTE | 2017-10-06 09:33 | PDINTPN ---
Campaign Worker Progress Note Assessment/Plan: Assessment/plan: * Status post fall * Femoral neck fracture status post repair * Free air under the diaphragm-status post ex lap without signs of perforation -follow * Diabetes-blood sugar under control * Hypertension * Pain-well controlled * Disposition-likely okay for transfer to floor Subjective: Resting comfortably. Pain well controlled. Objective: Vital Signs Temp Pulse Resp BP Pulse Ox 36.8 C 87 17 123/50 H 95 10/06/17 07:44 10/06/17 07:44 10/06/17 07:44 10/06/17 07:44 10/06/17 07:44 Laboratory Results 10/06/17 05:30 10/06/17 05:30 10/05/17 10/06/17 10/07/17 05:59 05:59 05:59 Intake Total 1771 2952 Output Total 1190 2000 250 Balance 581 952 -250 PT 13.7 SEC (12.0-15.0) 10/03/17 02:15 INR 1.03 (0.83-1.16) 10/03/17 02:15 - Time Spent With Patient Time Spent With Patient: 25 min of time spent with patient, over 1/2 involved with coordination of care or counseling Physical Exam - Physical Exam General Appearance: alert, no apparent distress EENT: PERRL/EOMI Neck: non-tender, full range of motion Respiratory: chest non-tender, lungs clear Cardiac/Chest: normal peripheral pulses, regular rate, rhythm Peripheral Pulses: 2+: carotid (R), carotid (L), femoral (R), femoral (L), dorsalis-pedis (R), dorsalis-pedis (L) Abdomen: normal bowel sounds, non-tender, soft Pelvic Exam: deferred Rectal: deferred Skin: normal color, warm/dry Extremities: non-tender Neuro/Psych: alert ICD10 Worksheet Patient Problems: Problems Problem Status Onset Fracture of neck of femur Acute Diabetes mellitus Acute Leukocytosis Acute Pyelonephritis Acute Ureterolithiasis Acute
--- NOTE | 2017-10-06 11:29 | HOSPPROG ---
Hospitalist Progress Note Assessment/Plan: DIAGNOSES: # hip fracture status post fall at home, subcapital on the left, with minimal displacement * Status post ORIF with screw fixation * Doing well and beginning to ambulate postop # pneumoperitoneum with abdominal pain, uncertain cause * Laparoscopy disclose no finding to explain this phenomenon * Doing well postop, beginning to take p.o. # history of hypertension, controlled here # diabetes mellitus type 2, sugars in excellent range here so far despite being off her usual metformin * At this time do not need to continue fingersticks here # osteoporosis * Should work with primary care physician to consider the optimal anti resorptive therapy for her, will start calcium supplements and check a vitamin- D level here # atherosclerosis of aorta and iliac arteries, incidentally noted on CT scan * In the outpatient setting she should work with her primary care doctor to make sure she is on a good preventive regimen PLANS: * At this time could moved to [employer] * Continue physical occupational therapy, routine postop care for abdomen and hip * No metformin and till at least [address] scan, though looks like sure you will do fine without the metformin for this time with her sugars * Will check a vitamin-D level now and start calcium supplements * Outpatient plan should include management of osteoporosis with anti resorptive therapy, and optimal preventive measures for vascular disease via her primary care physician This patient seen today on hospitals rounds as well as multidisciplinary rounds Reviewed in detail with Dr Allen SUBJECTIVE: Little pain overall Is getting up and walking Is beginning to take p.o. 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 Exam: alert oriented skin warm dry color ok resps not labored lungs diminished but clear BSs heart regular abd soft nondistended nontender, bowel sounds present, incisions look good limbs warm, no edema iv site ok Laboratory data: White blood cell count better, slight decrease in hemoglobin Unremarkable chemistry panel other than expected low albumin given her circumstances Microbiology data: No growth from any blood cultures as of yet Objective: Vital Signs Temp Pulse Resp BP Pulse Ox 36.8 C 87 17 123/50 H 95 10/06/17 07:44 10/06/17 07:44 10/06/17 07:44 10/06/17 07:44 10/06/17 07:44 Laboratory Results 10/06/17 05:30 10/06/17 05:30 10/05/17 10/06/17 10/07/17 06:59 06:59 06:59 Intake Total 1771 2952 600 Output Total 1190 2000 250 Balance 581 952 350 PT 13.7 SEC (12.0-15.0) 10/03/17 02:15 INR 1.03 (0.83-1.16) 10/03/17 02:15 - Time Spent With Patient Time Spent with Patient: greater than 35 minutes Time Spent with Patient: Greater than 35 minutes spent on this patients care, greater than 50% of time spent counseling, educating, and coordinating care regarding the above mentioned plan. ICD10 Worksheet Patient Problems: Problems Problem Status Onset Fracture of neck of femur Acute Diabetes mellitus Acute Leukocytosis Acute Pyelonephritis Acute Ureterolithiasis Acute
--- NOTE | 2017-10-06 11:58 | ASMTCMCOM ---
CM Note CM Note Notes: Patient transferring to floor. She is hopeful to discharge to [facility] Inpatient Rehab for intensive therapy. She will consider SNF if not able to go to Inpatient. Her son is getting 10/30, and she is anxious to be more mobile by then. We discussed [facility] as back-up options. Sun from Inpatient will evaluate today. Date Signed: 10/06/2017 11:57 AM Electronically Signed By:Ami Ashford RN
--- NOTE | 2017-10-06 12:57 | SOAPPROG ---
SOAP Progress Note Assessment/Plan: Assessment: 77 yo female pod#2 s/p left femoral neck fracture s/p percutaneous pinning by dr. quispe, doing well, no issues, pod #2 s/p ex lap for free air in the abdomen, doing well, advancing her bowels w/o issue -proph: lovenox 40 sub q daily while in hospital, asa 325 daily once discharge, incentive spirometry, scd's, jermaine silases -ot/pt: weight bearing as tolerated left lower extremity -in patient consult placed to consider placement at [facility] in patient rehab to facility/expedite recovery from the left femoral neck fracture as well as the abdominal surgery. -pain per primary -ortho will continue to follow Plan: 10/05/17 21:42 10/06/17 20:44 Subjective: alissa reports that she is doing well, she has been eating and drinking with out issue, has voided and moved her bowels, she is walking with OT/PT and with her walker without any issues. she reports the pain is well controlled, she denies any fevers or chills. denies any chest pain or sob. is anxiously waiting for transfer to in patient rehab at [facility]. Objective: LLE: dressings c/d/i, no surrouding erythema or signs of infection, appropriately tender to palpation, hip flexion/extension w/ minimal pain, grossly nvid w/ brisk cap refill Vital Signs Temp Pulse Resp BP Pulse Ox 36.8 C 87 17 123/50 H 95 10/06/17 07:44 10/06/17 07:44 10/06/17 07:44 10/06/17 07:44 10/06/17 07:44 Laboratory Results 10/06/17 05:30 10/06/17 05:30 10/05/17 10/06/17 10/07/17 05:59 05:59 05:59 Intake Total 1771 2952 600 Output Total 1190 2000 250 Balance 581 952 350 PT 13.7 SEC (12.0-15.0) 10/03/17 02:15 INR 1.03 (0.83-1.16) 10/03/17 02:15 ICD10 Worksheet Patient Problems: Problems Problem Status Onset Fracture of neck of femur Acute Diabetes mellitus Acute Leukocytosis Acute Pyelonephritis Acute Ureterolithiasis Acute
[2017-10-06] MEDS: oxyCODONE IR 5 MG TAB PO PRN (20:10)
[2017-10-07] MEDS: ACETAMINOPHEN 500 MG TAB PO SCH ×2 (05:26→13:15)
[2017-10-07] MEDS: ASPIRIN 81 MG CHEWABLE TAB PO SCH (08:11)
[2017-10-07] MEDS: ERTAPENEM 1 GM in NS 100 ML IV SCH (08:11)
--- NOTE | 2017-10-07 09:56 | SOAPPROG ---
SOAP Progress Note Assessment/Plan: Assessment: 77 Y F s/p fall c femoral neck fracture s/p surgical repair free air on CT , s/p ex-laparoscopy with no evidence of perforation S: Doing well. Tolerating a regular diet, voiding her bladder and passing gas and BMs. Pain well controlled. O: Alert Afebrile No increased WOB Abdomen: soft, incision cdi, normoactive bowel sounds Plan: Ok to go from gen surg standpoint. Will defer to ortho and medicine teams. 10/07/17 09:54 Objective: Vital Signs Temp Pulse Resp BP Pulse Ox 36.8 C 90 20 121/54 H 91 L 10/07/17 08:08 10/07/17 08:08 10/07/17 08:08 10/07/17 08:08 10/07/17 08:08 Laboratory Results 10/06/17 05:30 10/06/17 05:30 10/06/17 10/07/17 10/08/17 05:59 05:59 05:59 Intake Total 2952 1850 Output Total 1999 1420 Balance 952 430 PT 13.7 SEC (12.0-15.0) 10/03/17 02:15 INR 1.03 (0.83-1.16) 10/03/17 02:15 ICD10 Worksheet Patient Problems: Problems Problem Status Onset Fracture of neck of femur Acute Diabetes mellitus Acute Leukocytosis Acute Pyelonephritis Acute Ureterolithiasis Acute
--- NOTE | 2017-10-07 11:13 | HOSPPROG ---
Hospitalist Progress Note Assessment/Plan: DIAGNOSES: # hip fracture status post fall at home, subcapital on the left, with minimal displacement * Status post ORIF with screw fixation * Doing well and beginning to ambulate postop # pneumoperitoneum with abdominal pain, uncertain cause * Laparoscopy disclose no finding to explain this phenomenon * Doing well postop, beginning to take p.o. # history of hypertension, controlled here # diabetes mellitus type 2, sugars in excellent range here so far despite being off her usual metformin * At this time do not need to continue fingersticks here * Sugars excellent so will not resume her metformin at this time # osteoporosis * Should work with primary care physician to consider the optimal anti resorptive therapy for her * Vitamin-D level still pending, will not start calcium supplements yet at so that we do not cause constipation after belly surgery but that should be started soon # atherosclerosis of aorta and iliac arteries, incidentally noted on CT scan * In the outpatient setting she should work with her primary care doctor to make sure she is on a good preventive regimen PLANS: * At this time could go to residential but she may need 1 more overnight due to Medicare rules * Continue physical occupational therapy, routine postop care for abdomen and hip * Now far enough out from CT dye that she could start metformin, but sugars are good enough without that I will not start the medicine at this time * Vitamin-D level pending, will not start calcium at this time due to recent abdominal surgery and wished to avoid constipation, but should start soon * Outpatient plan should include management of osteoporosis with anti resorptive therapy, and optimal preventive measures for vascular disease via her primary care physician This patient seen today on hospitals rounds as well as multidisciplinary rounds Reviewed in detail with Dr Allen SUBJECTIVE: Again very little pain Doing well with eating walking, has had bowel movement No other complaints OBJECTIVE Vitals reviewed: All stable without fever 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, 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 Exam: alert oriented skin warm dry color ok resps not labored lungs diminished but clear BSs heart regular abd soft nondistended nontender, bowel sounds present, incisions look good limbs warm, no edema iv site ok Laboratory data: White blood cell count better, slight decrease in hemoglobin Unremarkable chemistry panel other than expected low albumin given her circumstances Microbiology data: No growth from any blood cultures as of yet Objective: Vital Signs Temp Pulse Resp BP Pulse Ox 36.8 C 90 20 121/54 H 91 L 10/07/17 08:08 10/07/17 08:08 10/07/17 08:08 10/07/17 08:08 10/07/17 08:08 Laboratory Results 10/06/17 05:30 10/06/17 05:30 10/06/17 10/07/17 10/08/17 06:59 06:59 06:59 Intake Total 2952 1850 Output Total 1999 1420 Balance 952 430 PT 13.7 SEC (12.0-15.0) 10/03/17 02:15 INR 1.03 (0.83-1.16) 10/03/17 02:15 ICD10 Worksheet Patient Problems: Problems Problem Status Onset Fracture of neck of femur Acute Diabetes mellitus Acute Leukocytosis Acute Pyelonephritis Acute Ureterolithiasis Acute
[2017-10-07] MEDS: oxyCODONE IR 5 MG TAB PO PRN (12:33)
[2017-10-07] MEDS: CYCLOBENZAPRINE 10 MG TAB PO PRN (13:27)
--- NOTE | 2017-10-07 14:40 | SOAPPROG ---
SOAP Progress Note Assessment/Plan: Assessment: 77 yo female pod#3 s/p left femoral neck fracture s/p percutaneous pinning by dr. quispe, doing well, no issues, pod #3 s/p ex lap for free air in the abdomen, doing well, eating/drinking/voiding/passing her bowels -proph: lovenox 40 sub q daily while in hospital, asa 325 daily once discharge, incentive spirometry, scd's, jermaine rosenes -ot/pt: weight bearing as tolerated left lower extremity -patient to be sent to [facility] inpatient rehab on 10/07/17 at 1700 -pain per primary -patient to follow up with orthopedics at [facility] for orthopedics approximately 10-14 days after surgery, appointment approximately 10/13/17 or sooner if having issues. -discharge follow up date and order placed in discharge summary Subjective: alissa reports no issues overnight, pain is well controlled, she is walking with PT/ot and walker without issues, and is to be sent to [facility] inpatient rehab this evening at 5pm. she is voiding and passing her bowels without issues. denies any fevers/chills, denies n/v/d/c, denies cp/sob/difficulty breathing, denies any numbness/tingling Objective: LLE: dressings c/d/i, small amount of ecchymosis visible on posterior side of dressing, no signs of infection, appropriately ttp, full knee/hip/digit rom w/o pain, grossly nvid and pt/dp 2+ Vital Signs Temp Pulse Resp BP Pulse Ox 36.7 C 96 16 135/62 H 89 L 10/07/17 13:36 10/07/17 13:36 10/07/17 13:36 10/07/17 13:36 10/07/17 13:36 Laboratory Results 10/06/17 05:30 10/06/17 05:30 10/06/17 10/07/17 10/08/17 05:59 05:59 05:59 Intake Total 2952 1850 400 Output Total 2000 1420 300 Balance 952 430 100 PT 13.7 SEC (12.0-15.0) 10/03/17 02:15 INR 1.03 (0.83-1.16) 10/03/17 02:15 - Pending Discharge Pending Discharge Within 24 Hours: Yes Pending Discharge Date: 10/08/17 Pending Discharge Time: 11:00 ICD10 Worksheet Patient Problems: Problems Problem Status Onset Fracture of neck of femur Acute Diabetes mellitus Acute Leukocytosis Acute Pyelonephritis Acute Ureterolithiasis Acute
--- NOTE | 2017-10-07 14:57 | PDIAF ---
- Diagnosis Diagnosis: Hip fracture status post ORIF; pneumoperitoneum unknown etiology Code Status: Full Code - Medication Management Discharge Medications: Medications to Continue on Transfer Aspirin [Aspirin 81mg (*)] 81 mg PO DAILY 10/25/16 [Last Taken 10/03/17] Benazepril HCl [Lotensin (*)] 10 mg PO DAILY 10/25/16 [Last Taken 10/03/17] amLODIPine BESYLATE [Norvasc 5 mg (*)] 5 mg PO DAILY 10/25/16 [Last Taken ] metFORMIN HCL [Glucophage 500 mg (*)] 500 mg PO BIDMEAL 10/04/17 [Last Taken 07/18 18:00] Acetaminophen [Tylenol ES 500 mg (*)] 1,000 mg PO Q8 tab 10/07/17 [Last Taken Unknown] Amoxicillin/Clavulanate Pot [Augmentin 875 MG TAB (*)] 875 mg PO BID #8 tab 11/17 [Last Taken Unknown] Cyclobenzaprine [Flexeril 10 MG (*)] 10 mg PO Q8H PRN tab 10/07/17 [Last Taken Unknown] Ondansetron Odt [Zofran Odt 4 mg (*)] 4 mg PO Q4HRS PRN tab 10/07/17 [Last Taken Unknown] oxyCODONE IR [Oxycodone Ir (*)] 5 - 10 mg PO Q4HRS PRN tab 10/07/17 [Last Taken Unknown] Additional Medication Instructions: Stop Augmentin after October 11 Discharge Medications: Refer to the Discharge Home Medication list for PRN reason. - Orders Services needed: Registered Nurse, Certified Loom Overhauler, Master Contact Finger Assembler , Physical Therapy, Occupational Therapy Diet Recommendation: no restrictions on diet, other (diet per dr. blackburn team) Diet Texture: Regular Texture Diet Sutures/[place] Site: Contact Dr. Blackburn for any issues with abdominal incisions from laparoscopy, Dr. Beltran with any issues related to hip incision Additional Instructions: No lifting, pushing, or pulling greater than 15 lbs. Ok to shower. Avoid baths/ pools. Notify Dr. Blackburn of any issues with abdominal incisions Make an appoint with Dr. Butch Blackburn in 7-10 days for follow-up after abdominal surgery weight bearing as tolerated left lower extremity Notify Dr. Devin of any issues with her hip or hip incision site make an appoint with Dr. Beltran of Orthopedics in and 10 14 days for follow-up after surgery - Follow Up Care Current Providers and Referrals: Butch Blackburn MD [Medical Doctor] - follow up in 2 weeks Igor Beltran MD [Medical Doctor] - follow up in 1 week (Call office for appointment for hip surgery follow up, appointment should be made in our office for 10 days post operation (approx 10/13/17) for wound check, x-rays, and any other issues that may present along the way.)
--- NOTE | 2017-10-07 15:03 | PDDCSUM ---
Discharge Summary Discharge Summary: DISCHARGE DIAGNOSES: -acute left subcapital hip fracture after a mechanical fall status post ORIF with screw fixation -pneumoperitoneum of uncertain etiology, status post exploratory laparoscopy without significant findings -osteoporosis, vitamin-D level pending at [facility], should be assessed by primary care physician or bone specialist in near future for optimal management of osteoporosis -type 2 diabetes mellitus, well controlled -atherosclerosis incidentally identified on CT scanning with peripheral vascular disease. Asymptomatic. Patient should be assessed by primary care physician for risk factor modifications over time CONSULTANTS: Dr. Butch Beltran PROCEDURES: Open reduction internal fixation of left subcapital hip fracture Exploratory laparoscopy HOSPITAL COURSE SUMMARY: This patient was doing reasonably well until she was home and had a mechanical fall leading to a left subcapital hip fracture. There are no signs of any other fractures or injuries, and there was no sign of a neurologic cardiac vascular or respiratory cause of her fall. She was felt stable for surgery and with the operating room where she had an uneventful screw fixation of her fracture and she has recovered very nicely since then. She is up walking without too much difficulty but still needing some ongoing physical therapy before going home. While she was here she developed some abdominal pain. As this persisted she was assessed with a CT scan which showed some pneumoperitoneum although no abnormalities to explain that presence. She went to the OR for exploratory laparoscopy and there were essentially no pathologic findings. The surgeries well tolerated and she has recovered nicely from it since then. She is eating well, having bowel movements, up walking in the hallways, no nausea or fevers. The cause of the pneumoperitoneum is unknown but the patient is recovering nicely. She will continue on some antibiotics just in case there is any presence of bacteria or other infectious process. PENDING TEST RESULTS: Vitamin-D level MEDICATION CHANGES: Augmentin is added for several more days for pneumoperitoneum Pain and laxative and nausea medicines are included as transfer to assisted facility FOLLOW-UP PLAN: Currently being transferred to [facility] with anticipation of going home soon Follow up with Dr. Butch Mata 1-2 weeks Follow up with Dr. Beltran in 10-14 days Greater than 35 minutes bedside and care coordination time today
[2017-10-07 15:18] VITALS: BP 143/69
--- NOTE | 2017-10-09 09:10 | ASDISCHSUM ---
Discharge Information Plan Status:Has needs-TBD Medically Cleared to Leave: Discharge Date:10/07/2017 05:18 PM CM D/C Disposition: ADT D/C Disposition:[id number] Projected Discharge Date:10/08/2017 11:00 AM Transportation at D/C: Discharge Delay Reason: Follow-Up Date:10/08/2017 11:00 AM Discharge Slot: Final Diagnosis: Placement Information Referral Type:*Longterm/SNF Referral ID:[id number] Provider Name:Alexus Dunlap [address] [facility] Phone Number: Address 2: Fax Number: City:[place] Selection Factors: State:[place] Patient Contact Information Contact Name:JONAS Relationship:Son Address: Work Phone: City: [facility] Phone: [facility] Code: Email: Financial Information Financial Class:Medicare Advantage Plans Primary Plan Desc:[facility] ADV[employer] PLANS Primary Plan Number:[id number] Secondary Plan Desc: Secondary Plan Number: Assessment Information [facility] CM Progress Note CM Note CM Note Notes: Pt to OR today for hip fx after fall at home. Pt resides independently and has a son involved. Therapy evaluations pending. CM to follow for d/c planning. Date Signed: 10/04/2017 11:25 AM Electronically Signed By:JEANINE Moore [facility] CM Progress Note CM Note CM Note Notes: Patient transferring to floor. She is hopeful to discharge to [facility] Inpatient Rehab for intensive therapy. She will consider SNF if not able to go to Inpatient. Her son is getting 10/30, and she is anxious to be more mobile by then. We discussed [facility] and [facility] as back-up options. Sun from Inpatient will evaluate today. Date Signed: 10/06/2017 11:57 AM Electronically Signed By:Ami Ashford RN Case Management Discharge Plan Note Case Management Discharge Discharge Order Complete? Answers: Yes Patient to Obtain Answers: Other Notes: [facility] Transportation Arranged Answers: Other Notes: Sue per [facility] Transport will Pick (Date 10/07/2017 05:00 PM & Time) Faxed Final Orders Answers: Yes Discharge Comments Notes: Patient discharged to [facility]. Transport arranged by facility. Date Signed: 10/07/2017 03:10 PM Electronically Signed By:Ami Ashford RN Intervention Information
--- NOTE | 2017-10-10 04:15 | GOP ---
[f rep st] OPERATIVE REPORT DATE OF OPERATION: 10/05/2017 SURGEON: Butch Mata MD PREOPERATIVE DIAGNOSIS: Perforated viscus with free intraabdominal air. POSTOPERATIVE DIAGNOSIS: Probable pneumatosis coli. PROCEDURE PERFORMED: DIAGNOSTIC LAPAROSCOPY FINDINGS: There was no evidence of any perforation of the stomach, colon or small bowel. The patient did have some pneumatosis of the transverse colon which might explain the site of free air. DESCRIPTION OF PROCEDURE: The patient was taken to the operating room where she received satisfactory general endotracheal anesthesia by Dr. Knight, placed in supine position, prepped and draped in usual sterile fashion. A periumbilical incision was made, a Veress needle inserted, a pneumoperitoneum was established. Trocar was introduced, laparoscope introduced, good visualization was obtained. Two other trocars were placed in the upper abdomen under direct vision. On entering the abdomen, there was no evidence of free fluid or any sort of contamination in the abdomen. The stomach was well visualized. The duodenum was quite obvious. There was no evidence of any peptic ulcer or perforation in the abdomen and around the abdomen. The small bowel was run in its entirety with no evidence of perforation, and the colon was also examined down into the pelvis with no evidence of perforation, leakage or contamination or inflammation. The lesser sac was opened and the pancreas appeared to be normal. There was no evidence of any perforation on the backside of the stomach. It was elected at this point not to open up the abdomen despite the significant amount of free air seen which would initiate our present surgery. Trocars were removed under direct vision. Trocar sites were closed with 0 Vicryl for the fascia, 4-0 Monocryl subcuticular stitch for the skin and all layers infiltrated with Marcaine. Blood loss was zero. No complications. Taken to the recovery room in good condition. /[id number]/MODL MTDD
== END 2017-10-07 17:18 | disposition home health service (06) | DRG 482 ==
LOC: CED 22:10 → CEDHOLD 23:30 → F3N 10-04 01:00 → F2N 10-04 23:02 → F3N 10-07 13:23
PROVIDERS: ADMIT Internal Medicine; ATTEND Internal Medicine
PROC: 0QH734Z Insertion of Internal Fixation Device into Left Upper Femur, Percutaneous Approach (ICD-10-PCS; principal; 2017-10-04 13:15)
PROC: 0WJG4ZZ Inspection of Peritoneal Cavity, Percutaneous Endoscopic Approach (ICD-10-PCS; 2017-10-05)
DX: S72.012A Unspecified intracapsular fracture of left femur, initial encounter for closed fracture (principal); W01.0XXA Fall on same level from slipping, tripping and stumbling without subsequent striking against object, initial encounter; Y92.007 Garden or yard of unspecified non-institutional (private) residence as the place of occurrence of the external cause; K63.89 Other specified diseases of intestine; E11.9 Type 2 diabetes mellitus without complications; I10 Essential (primary) hypertension; Z87.442 Personal history of urinary calculi; Z87.891 Personal history of nicotine dependence
CPT/HCPCS: 73502-PO; 80048-PO; 82652-90; 97116-GP; 97162-GP; 97165-GO; 97530-GO; 97530-GP; 97535-GO; C1713; C1769; G8978-GP-CM; G8979-GP-CJ; G8987-GO-CK; G8988-GO-CI; G8989-GO-CI; J0690; J1100; J1170; J1335; J2001; J2270; J2405; J2704; J3010; Q9967

== ENCOUNTER → 2018-03-03 | Outpatient (CLI) | payer OTHER | LOC: CIMAGING 11:55 | PROVIDERS: ATTEND Internal Medicine | DX: J98.09 Other diseases of bronchus, not elsewhere classified (principal); J98.11 Atelectasis; S22.030D Wedge compression fracture of third thoracic vertebra, subsequent encounter for fracture with routine healing | CPT/HCPCS: 71046-PO ==

== ENCOUNTER → 2018-08-02 | Outpatient (CLI) | payer OTHER | LOC: CIMAGING 10:17 | PROVIDERS: ATTEND Internal Medicine | DX: J40 Bronchitis, not specified as acute or chronic (principal); R06.00 Dyspnea, unspecified; R05 Cough; R06.2 Wheezing | CPT/HCPCS: 71046-PO ==